=== PATIENT | male | born 1985 | race Caucasian/White ===

== ENCOUNTER → 2020-10-17 14:22 | Outpatient (BNVA) | payer MEDICARE, MEDICAID, SELFPAY | PROVIDERS: PCP Registered Nurse; Visit Provider Internal Medicine Pulmonary Disease | DX: J45.20 Mild intermittent asthma, uncomplicated (principal); G47.33 Obstructive sleep apnea (adult) (pediatric); Z79.899 Other long term (current) drug therapy | CPT/HCPCS: 99202 ==

== ENCOUNTER 2020-10-23 15:08 | Outpatient (REF) | payer MEDICARE, MEDICAID, SELFPAY ==
--- NOTE | ~2020-10-23 | XR_ITS ---
EXAMINATION: XR HIP, LEFT CLINICAL INFORMATION: Pain COMPARISON: None TECHNIQUE: Two views of the left hip. FINDINGS: Bones and soft tissues are normal. No fracture. Alignment is anatomic. Hip joint space is maintained. XR/XR hip LT min 2V IMPRESSION: Normal left hip.
--- NOTE | ~2020-10-23 | XR_ITS ---
EXAMINATION: XR LUMBOSACRAL SPINE WITH OBLIQUES CLINICAL INFORMATION: Low back pain COMPARISON: None TECHNIQUE: AP, both oblique, and lateral views of the lumbar spine. Lateral view of the lumbosacral junction. FINDINGS: There may be a transitional vertebral body segment or 6 lumbar-type vertebral bodies. For the purposes of this dictation, the transitional segment is designated inferiorly with the L1 vertebral body being the first nonrib-bearing vertebral body and the top of the iliac crest at L4-L5. Bone alignment is normal. No fracture or dislocation is seen. There may be mild disc space narrowing at the transitional segment sacral articulation. Disc spaces are otherwise normal. There is a pseudoarticulation of the transitional segment transverse processes with the sacrum and mild degenerative change bilaterally. No pars defect is seen. Paraspinal soft tissues are unremarkable. XR/XR lumbar spine 4V min IMPRESSION: Probable transitional vertebral body and degenerative change at the transitional segment sacral level.
== END 2020-10-23 15:09 | disposition home or self-care (01) ==
LOC: HO.XRAY 15:08
PROVIDERS: PCP Registered Nurse; Visit Provider Registered Nurse
DX: M54.5 Low back pain (principal); M79.605 Pain in left leg
CPT/HCPCS: 72110; 73502

== ENCOUNTER 2020-11-21 08:48 | Outpatient (REF) | payer MEDICARE, MEDICAID, SELFPAY ==
--- NOTE | 2020-11-21 17:17 | PFT_ITS ---
FLOWS: FEV1 is 99% of predicted at 3.59 L. FVC 88% of predicted at 3.89 L. FEV1 to FVC ratio of 0.92. No bronchodilator response. LUNG VOLUMES: Total lung capacity 88% of predicted at 5.06 L. Residual volume 74% of predicted at 1.04 L. Slow vital capacity 93% of predicted at 4.03 L. Expiratory reserve volume 83% of predicted at 1.09 L. Diffusion capacity is normal. IMPRESSION: No obstructive or restrictive ventilatory defect. No bronchodilator response. Essentially normal pulmonary function tests. Chava Deng MD AP/MODL / [id number]
== END 2020-11-21 08:49 | disposition home or self-care (01) ==
LOC: HO.RESP 08:48
PROVIDERS: PCP Registered Nurse; Visit Provider Internal Medicine Pulmonary Disease
DX: J45.909 Unspecified asthma, uncomplicated (principal)
CPT/HCPCS: 94060; 94727; 94729

== ENCOUNTER 2021-01-02 07:59 | Emergency (ER) | payer MEDICARE, MEDICAID, SELFPAY ==
[2021-01-02 09:39] VITALS: BP 138/72; PULSE 88; RESP 18; TEMP 36.8; O2SAT 96; BMI 40.8
--- NOTE | 2021-01-02 09:56 | ED.BACK ---
HPI - Back Pain/Injury General Chief Complaint: Back Pain/Injury Stated Complaint: back pain Time Seen by Provider: 01/02/21 09:40 Source: patient Mode of arrival: ambulatory Limitations: no limitations History of Present Illness HPI Narrative: A 35-year-old male with a past medical history of asthma here with complaints of low back pain. The patient tells me that he has had back pain for months which is quite chronic for him. However yesterday he slipped falling approximately 3 ft catching himself with the right lower extremity. He denies striking his back or any head injury or loss of consciousness. He has had increasing pain in his low back since then. Pain radiates the bilateral thighs. There is some occasional burning in his left thigh. No numbness or tingling in the lower extremities. No numbness in the groin. No bowel or bladder incontinence. No fevers or chills. The patient is ambulatory. MD elicited complaint: back pain Related Data Home Medications Medication Instructions Recorded Confirmed albuterol sulfate 90 mcg/actuation INHALATION 10/17/20 aerosol inhaler cholecalciferol (vitamin D3) 50 50 mcg PO DAILY 10/17/20 mcg (2,000 unit) capsule gabapentin 100 mg capsule mg PO 10/17/20 Previous Rx's Medication Instructions Recorded cyclobenzaprine 10 mg PO TID PRN #10 tab 01/02/21 lidocaine [Lidoderm] 1 patch TOPICAL DAILY #15 ea 01/02/21 naproxen 500 mg PO BID PRN #20 tab 01/02/21 Allergies Allergy/AdvReac Type Severity Reaction Status Date / Time No Known Allergies Allergy Verified 10/17/20 14:27 [No Known Allergies*] Review of Systems Review of Systems: Yes all other systems are reviewed and are negative Constitutional: Constitutional: Reports no additional constitutional complaints, Denies body ache(s), Denies chills, Denies fever(s), Denies headache(s) and Denies weakness Eyes: Eyes: Reports no additional eye complaints and Denies change in vision ENT: Reports system reviewed and no additional complaints, except as documented, Denies dizziness, Denies headache(s), Denies nasal congestion, Denies nasal discharge and Denies neck pain Cardiovascular: Cardiovascular: Reports no additional cardiovascular complaints, Denies chest pain, Denies leg edema and Denies dyspnea Respiratory: Respiratory: Reports no additional respiratory complaints, Denies cough and Denies dyspnea Gastrointestinal: Gastrointestinal: Reports no additional gastrointestinal complaints, Denies abdominal pain, Denies diarrhea, Denies nausea and Denies vomiting Genitourinary: Genitourinary: Denies urinary incontinence Musculoskeletal: Musculoskeletal: Reports no additional musculoskeletal complaints, Reports back pain, Denies arthralgias, Denies joint swelling, Denies neck pain, Denies numbness and Denies tingling Integumentary/Breasts: Skin/Breast: Reports system reviewed and no additional complaints, except as docu and Denies rash Neurologic: Reports system reviewed and no additional complaints, except as documented, Denies Abnormal speech present, Denies dizziness, Denies headache(s), Denies numbness, Denies tingling and Denies weakness PMFSH Past Medical History Attestation statement: The following information was validated with the patient. Source: old records reviewed and nursing notes reviewed Social History Social History Smoking Status: Never smoker Advance Directives: No Advance Directives Information Provided: No Physical Exam Vital Signs: Vital Signs: Last Vital Signs Temp 98.2 F 01/02/21 09:39 Pulse 88 01/02/21 09:39 Resp 18 01/02/21 09:39 BP 138/72 01/02/21 09:39 Pulse Ox 96 01/02/21 09:39 Body Mass Index 40.8 Const: General: cooperative, healthy appearing, comfortable and no acute distress Orientation/consciousness: patient oriented x3 Limitations: no limitations HENMT: Head: Yes normal to inspection Ears: hearing grossly normal bilaterally General nose exam: Normal external nose present Face and sinus: Yes normal facial exam Mouth: Normal oral and palatal mucosa present Throat: Yes posterior oropharynx normal Eyes: General: appearance normal, both eyes and all related structures Pupils: Equal, round and reactive pupils present Neck: Neck: Yes normal visual inspection Chest: Chest palpation & inspection: normal inspection of the chest Resp: Effort & Inspection: normal respiratory effort Auscultation: clear to auscultation bilaterally Cardio: Rate: regular rate Rhythm: regular rhythm Peripheral pulses: Peripheral pulses 2+ throughout GI: Inspection: Yes normal to inspection Palpation (GI): Soft to palpation and nontender Auscultation: normal bowel sounds Back/Spine/Pelvis: Other: Bilateral lumbar soft tissue tenderness with no midline tenderness, step-offs or deformities. Thoracic/Lumbar Spine: thoracic and lumbar spine normal to inspection Skin: General skin exam: no rashes or lesions noted Neuro: General: patient oriented x3, no focal motor deficits and normal sensation to monofilament Cranial nerves: Yes Equal, round and reactive pupils present Cognition (Neuro): normal cognition Speech: No Abnormal speech present Gait exam (Neuro): Normal gait present Motor exam (neuro): 5/5 motor strength present throughout Sensory Exam: Normal double simultaneous stimulation for sensation Deep tendon reflexes (DTR's): Right patellar reflex intensity grade: 2+ and Left patellar reflex intensity grade: 2+ Coordination: tandem gait normal Extrem: General: Yes normal to inspection Course Course Course Narrative: 35-year-old male here with acute on chronic low back pain times 24 hours after an injury. There was no fall landing on the back and there are no step-offs or midline tenderness or deformities. Normal neuro exam. Likely lumbar strain. Reviewed worrisome signs and symptoms of when to return to the emergency department (saddle anesthesia, incontinence, fever). Comfortable with discharge home. MDM - Back Pain/Injury Medical Records Attestation: I reviewed the patient's medical records. Lab Data Attestation: I reviewed the patient's lab results. Discharge Plan Discharge Clinical Impression: Strain of lumbar region Patient Disposition: Home, Self-Care Instructions: Low Back Strain (ED), Lower Back Exercises (ED), Core Strengthening Exercises (ED) Additional Instructions: Heat or ice Gentle stretching No heavy lifting or bending Follow-up with your primary care doctor. You may need an MRI of your back if you keep having persistent pain. This can be ordered by your primary care doctor. Return for fever greater than 100.4, bowel or bladder incontinence, numbness in the groin Prescriptions: New naproxen 500 mg tablet 500 mg PO BID PRN (Reason: pain) Qty: 20 RF: 0 cyclobenzaprine 10 mg tablet 10 mg PO TID PRN (Reason: muscle spasm) Qty: 10 RF: 0 lidocaine [Lidoderm] 5 % adhesive patch,medicated 1 patch topical DAILY Qty: 15 RF: 0 Referrals: Susy Hendricks, EPIT[employer] REACTOR TECHNICIAN [Primary Care Provider] - 2 days Interventions: ED Discharge Assessment Last Done: 01/02/21 10:05 Discharge Date/Time: 01/02/21 10:13
== END 2021-01-02 10:13 | disposition home or self-care (01) ==
PROVIDERS: Emergency Provider Emergency Medicine; PCP Registered Nurse
DX: S39.012A Strain of muscle, fascia and tendon of lower back, initial encounter (principal); W10.9XXA Fall (on) (from) unspecified stairs and steps, initial encounter; Y93.9 Activity, unspecified; Y92.9 Unspecified place or not applicable; Y99.9 Unspecified external cause status; G89.29 Other chronic pain; M54.5 Low back pain
CPT/HCPCS: 99283

== ENCOUNTER 2021-01-16 17:01 | Emergency (ER) | payer MEDICARE, MEDICAID, SELFPAY ==
--- NOTE | ~2021-01-16 | XR_ITS ---
EXAMINATION: XR LUMBOSACRAL SPINE CLINICAL INFORMATION: Low back pain COMPARISON: 10/23/2020 TECHNIQUE: Three views of the lumbosacral spine. FINDINGS: There is lumbarization of S1. Disc spaces and disc heights are well preserved. No bony destructive lesions seen. There are some degenerative changes present at S1-S2. No fractures, subluxations or bony destructive lesions are seen. Compared to the prior study there's been no interval change. XR/XR lumbar spine 2-3V IMPRESSION: Lumbarization of S1 with degenerative change at S1-S2. Stable when compared to prior study.
[2021-01-16 17:11] VITALS: BP 141/84; PULSE 99; RESP 18; TEMP 36.8; O2SAT 99; BMI 37.8
--- NOTE | 2021-01-16 17:59 | ED_ITS ---
HPI - Back Pain/Injury General Chief Complaint: Extremity Problem Stated Complaint: Weakness on both legs Time Seen by Provider: 01/16/21 17:32 Source: patient Mode of arrival: ambulatory Limitations: no limitations History of Present Illness HPI Narrative: 35-year-old male with past medical history of BAYLEE and asthma presents with lower back pain and bilateral lower extremity sciatica. States that he fell off of a truck maybe 2 weeks ago, he is unsure of the date, states that the pain has progressively increased and now when he bends over he feels weakness in his thighs. He does not describe any loss of sensation, loss of balance, denies incontinence of bowel and bladder, fevers, chills, nausea, vomiting, chest pain or pressure, palpitations, shortness of breath, and any other concerning symptoms. He does not describe any loss of consciousness or hitting his head when he fell off the truck. He was seen by his primary care physician who prescribed Tylenol No. 3, cyclobenzaprine, and naproxen. MD elicited complaint: back pain Pertinent past history: recent trauma Onset (ago): week(s) (2) Timing: constant Severity: moderate Pain scale (0-10): 7 Quality: aching and spasming Location: lumbar spine Radiation: left upper leg and right upper leg Exacerbating factors: movement Relieving factors: immobilization Context: fall Associated symptoms: denies other symptoms Treatments prior to arrival: cold therapy, heat therapy, NSAIDS, acetaminophen, other medications and prescription analgesics Work related injury: No Related Data Home Medications Medication Instructions Recorded Confirmed albuterol sulfate 90 mcg/actuation INHALATION 10/17/20 aerosol inhaler cholecalciferol (vitamin D3) 50 50 mcg PO DAILY 10/17/20 mcg (2,000 unit) capsule gabapentin 100 mg capsule mg PO 10/17/20 Previous Rx's Medication Instructions Recorded cyclobenzaprine 10 mg PO TID PRN #10 tab 01/02/21 lidocaine [Lidoderm] 1 patch TOPICAL DAILY #15 ea 01/02/21 naproxen 500 mg PO BID PRN #20 tab 01/02/21 Allergies Allergy/AdvReac Type Severity Reaction Status Date / Time No Known Allergies Allergy Verified 10/17/20 14:27 [No Known Allergies*] Review of Systems Review of Systems: Constitutional: No Fever, No Chills ENT/Mouth: No Ear Pain, No Hoarseness, No sore throat Eyes: No Eye Pain, No Swelling, No Redness, No Foreign Body Cardiovascular: No Chest Pain, No SOB Respiratory: No Cough, No Dyspnea Gastrointestinal: No Nausea, No Vomiting, No Diarrhea, No abdominal Pain Genitourinary: No Dysuria, No Hematuria Musculoskeletal: positive lower back pain, No Myalgias, No Joint Swelling Skin: No Skin lacerations, No rash Neuro: No Weakness, No Numbness, No Paresthesias, No Loss of Consciousness, No Dizziness, No Headache Psych: No Anxiety/Panic, No Depression Heme/Lymph: no easy bruising, no Lymphadenopathy Endocrine: No Polyuria, No Polydipsia Yes all other systems are reviewed and are negative [facility] Past Medical History Attestation statement: The following information was validated with the patient. Source: old records reviewed Social History Social History Smoking Status: Never smoker Advance Directives: No Advance Directives Information Provided: No Physical Exam Vital Signs: Vital Signs: Last Vital Signs Temp 98.2 F 01/16/21 17:11 Pulse 99 01/16/21 17:11 Resp 18 01/16/21 17:11 BP 141/84 H 01/16/21 17:11 Pulse Ox 99 01/16/21 17:11 Body Mass Index 37.8 Appearance: Alert. Oriented X3. No acute distress. Head: Normal external exam. Normocephalic. Atraumatic. No Kelley signs noted. No raccoon eyes noted Eyes: PERRLA. EOMI. Conjunctiva and sclera normal. Eyelids normal. ENT: TM's Normal. Pharynx normal. Uvula midline. Moist mucous membranes. No trismus noted. No drooling noted. No muffled voice noted. Neck: Normal inspection. Neck supple. No adenopathy. No meningeal signs. No neck mass noted. CVS: Tachycardic heart rate and rhythm. Heart sound normal. No murmurs noted. Pulses equal to all extremities. Respiratory: No respiratory distress. Painless inspiration. Breath sounds normal. No wheezes/rales/rhonchi noted. Chest nontender. No accessory muscle usage noted or decreased air movement noted. Abdomen: Soft and nontender. Bowel sounds normal in all 4 quadrants. No distention noted. No organomegaly noted. No visible injury noted. Back: No CVA tenderness. Full range of motion noted. Skin: Skin warm and dry. Normal skin color. Normal skin turgor. No rashes/lesions/lacerations noted. Extremities: No lower extremity edema. Extremities exhibit normal range of motion. Extremities nontender. Neuro: cranial nerves 2-12 intact, no focal neural deficits, strength 5/5 to all extremities, No motor deficit. No sensory deficit. Patellar Reflexes normal. Course Course Course Narrative: 35-year-old male with past medical history of obstructive sleep apnea and asthma presents with injury sustained after falling off of a truck approximately 2 weeks ago. States that he has had lower back pain, was seen by his primary care and given multiple medications all of which have been ineffective. He is now reporting symptoms consistent with sciatica and bilateral thigh weakness. Will order x-ray of lumbar spine. Lumbar x-ray is consistent with prior findings, degenerative disc disease, no indication of acute findings or fracture. MDM - Back Pain/Injury Differential Diagnosis Differential diagnosis: Likely lumbar radiculopathy, sciatica and strain of lumbar region Medical Records Attestation: I reviewed the patient's medical records. Imaging Data Lumbar spine x-ray: Attestation: I personally reviewed and interpreted this imaging study as follows: Radiologist's impression: EXAMINATION: XR LUMBOSACRAL SPINE CLINICAL INFORMATION: Low back pain COMPARISON: 10/23/2020 TECHNIQUE: Three views of the lumbosacral spine. FINDINGS: There is lumbarization of S1. Disc spaces and disc heights are well preserved. No bony destructive lesions seen. There are some degenerative changes present at S1-S2. No fractures, subluxations or bony destructive lesions are seen. Compared to the prior study there's been no interval change. XR/XR lumbar spine 2-3V IMPRESSION: Lumbarization of S1 with degenerative change at S1-S2. Stable when compared to prior study. Discharge Plan Discharge Clinical Impression: Degenerative disc disease, lumbar, Lumbar spine strain Patient Disposition: Home, Self-Care Instructions: Low Back Strain (ED), Degenerative Disc Disease (ED), Lower Back Exercises (ED), Core Strengthening Exercises (ED) Additional Instructions: Please continue take the medications that were prescribed to you by your primary care provider. I referred you to Dr. Anderson, a paint mixer machine. It is highly recommended that you seek physical therapy for your back pain. Thank you for choosing this emergency department for evaluation. Please follow-up with primary care physician as needed. Return to the emergency department for any new, concerning, or worsening symptoms. Prescriptions: No Action naproxen 500 mg tablet 500 mg PO BID PRN (Reason: pain) Qty: 20 RF: 0 cyclobenzaprine 10 mg tablet 10 mg PO TID PRN (Reason: muscle spasm) Qty: 10 RF: 0 lidocaine [Lidoderm] 5 % adhesive patch,medicated 1 patch topical DAILY Qty: 15 RF: 0 Referrals: Tonio Anderson MD [Physician] - 2 days (Degenerative disc disease) Stand Alone Forms: Work/School Release Interventions: ED Discharge Assessment Last Done: 01/16/21 19:02 Discharge Date/Time: 01/16/21 19:04
== END 2021-01-16 19:04 | disposition home or self-care (01) ==
PROVIDERS: Emergency Provider Internal Medicine
DX: S39.012A Strain of muscle, fascia and tendon of lower back, initial encounter (principal); W17.89XA Other fall from one level to another, initial encounter; M51.36 Other intervertebral disc degeneration, lumbar region; M54.42 Lumbago with sciatica, left side; M54.41 Lumbago with sciatica, right side; Y93.9 Activity, unspecified; Y92.9 Unspecified place or not applicable; Y99.9 Unspecified external cause status
CPT/HCPCS: 72100; 99283; 99284

== ENCOUNTER → 2021-02-18 11:02 | Outpatient (REF) | payer MEDICARE, MEDICAID, SELFPAY | LOC: HO.SL 11:02 | PROVIDERS: PCP Registered Nurse; Visit Provider Internal Medicine Pulmonary Disease | DX: G47.33 Obstructive sleep apnea (adult) (pediatric) (principal) | CPT/HCPCS: 95806 ==

== ENCOUNTER 2021-07-28 08:45 | Emergency (ER) | payer MEDICARE, MEDICAID, SELFPAY ==
[2021-07-28 08:51] VITALS: BP 139/95; PULSE 110; RESP 16; TEMP 36.6; O2SAT 96; BMI 42.7
[2021-07-28] MEDS: Ketorolac Tromethamine 15 MG/ML VIAL 30 MG IM (09:37)
--- NOTE | 2021-07-28 09:52 | ED.BACK ---
HPI - Back Pain/Injury General Chief Complaint: Back Pain/Injury Stated Complaint: low back pain, blood in stool Time Seen by Provider: 07/28/21 09:13 Source: patient Mode of arrival: ambulatory History of Present Illness HPI Narrative: 36-year-old male with a past medical history of chronic back pain presenting to the ED complaining of acute on chronic back to pain x1 week. Denies known injury/trauma or falls. Reports symptoms unchanged from prior flares however worse. Reports intermittent radiation down left lower extremity with intermittent numbness. Denies weakness, urinary incontinence/retention, fever, chills, hematuria, dysuria Currently taking [place] outpatient from PCP without relief. Admits head MRI in March. States went to physical therapy in the past however made his symptoms worse MD elicited complaint: back pain Related Data Home Medications Medication Instructions Recorded Confirmed albuterol sulfate 90 mcg/actuation INHALATION 10/17/20 aerosol inhaler cholecalciferol (vitamin D3) 50 50 mcg PO DAILY 10/17/20 mcg (2,000 unit) capsule gabapentin 100 mg capsule mg PO 10/17/20 Previous Rx's Medication Instructions Recorded cyclobenzaprine 10 mg tablet 10 mg PO TID PRN #10 tab 01/02/21 lidocaine 5 % topical patch 1 patch TOPICAL DAILY #15 ea 01/02/21 (Lidoderm) naproxen 500 mg tablet 500 mg PO BID PRN #20 tab 01/02/21 acetaminophen 500 mg tablet 500 mg PO Q6H PRN #20 tab 07/28/21 (Tylenol Extra Strength) cyclobenzaprine 5 mg tablet 5 mg PO Q8H PRN 5 Days #14 tab 07/28/21 lidocaine 5 % topical patch 1 patch TOPICAL DAILY PRN #30 ea 07/28/21 (Lidoderm) MDD remove after 12 hours naproxen 500 mg tablet 500 mg PO BID PRN 10 Days #20 tab 07/28/21 prednisone 20 mg tablet 40 mg PO DAILY 5 Days #10 tab 07/28/21 Allergies Allergy/AdvReac Type Severity Reaction Status Date / Time No Known Allergies Allergy Verified 10/17/20 14:27 [No Known Allergies*] Review of Systems Review of Systems: Constitutional: No Fever, No Chills, No Fatigue, No Malaise ENT/Mouth: No Ear Pain, No Nasal Congestion, No Sinus Pain, No sore throat Eyes: No Eye Pain, No Swelling, No Redness Cardiovascular: No Chest Pain, No SOB Respiratory: No Cough, No Sputum Gastrointestinal: No Nausea, No Vomiting, No Abdominal pain Genitourinary: No Dysuria, No Urinary Frequency, No Hematuria,No Urinary Incontinence/retention, No Flank Pain Musculoskeletal: + joint pain, No Myalgias, No Joint Swelling Skin: No Skin Lesions, No rash Neuro: No Weakness, + Numbness, + Paresthesias Yes all other systems are reviewed and are negative Neurologic: Denies Sensory deficit (Neuro) [facility] Past Medical History Attestation statement: The following information was validated with the patient. Medical History (Updated 07/28/21 @ 09:56 by LUIS ANTONIO Crook) Chronic low back pain Social History Social History Advance Directives: No Physical Exam Vital Signs: Vital Signs: Last Vital Signs Temp 97.8 F 07/28/21 08:51 Pulse 110 H 07/28/21 08:51 Resp 16 07/28/21 08:51 BP 139/95 H 07/28/21 08:51 Pulse Ox 96 07/28/21 08:51 Body Mass Index 42.7 Const: General: cooperative, healthy appearing and no acute distress Orientation/consciousness: patient oriented x3 Limitations: no limitations HENMT: Head: Yes normal to inspection Ears: hearing grossly normal bilaterally General nose exam: Normal external nose present Face and sinus: Yes normal facial exam Eyes: General: appearance normal, both eyes and all related structures EOM: EOMs intact bilaterally Neck: Neck: Yes normal visual inspection and Yes no meningeal signs Resp: Effort & Inspection: normal respiratory effort and no respiratory distress Cardio: Rate: regular rate Heart sounds: S1 normal heart sound present and S2 normal heart sound present GI: Inspection: Yes normal to inspection Palpation (GI): Soft to palpation, nontender, no guarding and not rigid : General: Yes no CVA tenderness Back/Spine/Pelvis: Back: no CVA tenderness Skin: Rashes: no rashes Wounds: no wounds Neuro: Other: No midline spinous tenderness throughout, no saddle anesthesia. + left-sided lumbar MSK tenderness palpation. No ecchymosis. Sensation intact to light touch. Ambulating with steady gait General: patient oriented x3, gait normal, tone normal, moves all extremities and no meningeal signs Gait exam (Neuro): Normal gait present Sensory Exam: No Sensory deficit (Neuro) Extrem: General: Yes normal to inspection MDM - Back Pain/Injury MDM Narrative Medical decision making narrative: 36-year-old male with a past medical history of chronic back pain presenting to the ED complaining of acute on chronic back to pain x1 week. On exam mildly tachycardic, NAD/nontoxic, no midline spinous tenderness throughout, no red flag symptoms. Physical exam as above. Likely acute on chronic sciatica/degenerative back pain. Low concern for cauda equina, cord compression or renal stone/pyelo Discussed with patient he needs to follow-up with PCP/recommended physical therapy Medical Records Attestation: I reviewed the patient's medical records. Lab Data Attestation: I reviewed the patient's lab results. Discharge Plan Discharge Clinical Impression: Lumbar radiculopathy Patient Disposition: Home, Self-Care Instructions: Back Pain (ED) Additional Instructions: Your pain is likely musculoskeletal Flexeril is a muscle relaxer, take at night as it makes you drowsy, do not drive, drink alcohol, or operate machinery while taking it Naproxen as an anti-inflammatory / pain medication, take with food Prednisone as a steroid which help with inflammation Lidoderm patches are numbing patches, apply to painful area In addition take Tylenol at home If symptoms persist or worsen, pain becomes unbearable, you developed urinary retention or incontinence, or weakness return to the ED Please follow-up with her primary care doctor you likely need an MRI Es probable que hirsch dolor sea musculoesquel?ute Flexeril es un relajante muscular, t?catalan por la noche ya que le produce somnolencia, no conduzca, no johnie alcohol ni utilice maquinaria mientras lo maisha. Naproxeno fredi medicamento antiinflamatorio / analg?sico, itz con alimentos. Prednisona fredi esteroide que ayuda con la inflamaci?n. Los parches de Lidoderm son parches que adormecen, se aplican al ?blanca dolorida Adem?s, tome Tylenol en casa. Si los s?ntomas persisten o empeoran, el dolor se vuelve insoportable, desarroll? retenci?n urinaria o incontinencia o debilidad, regrese al servicio de urgencias Jennifer un seguimiento con hirsch m?dico de atenci?n primaria, es probable que necesite tosha resonancia magn?essence Prescriptions: New cyclobenzaprine 5 mg tablet 5 mg PO Q8H PRN (Reason: pain (scale score 7-10)) 5 Days Qty: 14 RF: 0 lidocaine [Lidoderm] 5 % adhesive patch,medicated 1 patch topical DAILY MDD remove after 12 hours PRN (Reason: pain) Qty: 30 RF: 0 acetaminophen [Tylenol Extra Strength] 500 mg tablet 500 mg PO Q6H PRN (Reason: pain or fever) Qty: 20 RF: 0 prednisone 20 mg tablet 40 mg PO DAILY 5 Days Qty: 10 RF: 0 naproxen 500 mg tablet 500 mg PO BID PRN (Reason: pain) 10 Days Qty: 20 RF: 0 No Action naproxen 500 mg tablet 500 mg PO BID PRN (Reason: pain) Qty: 20 RF: 0 cyclobenzaprine 10 mg tablet 10 mg PO TID PRN (Reason: muscle spasm) Qty: 10 RF: 0 lidocaine [Lidoderm] 5 % adhesive patch,medicated 1 patch topical DAILY Qty: 15 RF: 0 Referrals: Physician,Unknown J [Primary Care Provider] - 2 days
== END 2021-07-28 10:22 | disposition home or self-care (01) ==
PROVIDERS: Emergency Provider Emergency Medicine
DX: M54.16 Radiculopathy, lumbar region (principal)
CPT/HCPCS: 96372; 99284; J1885

== ENCOUNTER 2022-12-10 03:26 | Emergency (ER) | payer MEDICARE, MEDICAID, SELFPAY ==
--- NOTE | ~2022-12-10 | XR_ITS ---
EXAMINATION: XR CHEST CLINICAL INFORMATION: Productive cough COMPARISON: 10/12/2019 TECHNIQUE: 2 views of the chest were obtained. FINDINGS: The lungs are well expanded. There is no focal consolidation, edema, or effusion. No pneumothorax. The cardiomediastinal silhouette is within normal limits. No acute osseous abnormality. XR/XR chest 2V IMPRESSION: Clear lungs.
[2022-12-10 03:32] VITALS: BP 132/87; PULSE 132; RESP 24; TEMP 36.5; O2SAT 99; BMI 44.9
[2022-12-10 03:50] LABS: MANUAL DIFF FLAG NO
[2022-12-10 03:51] LABS: Basophils Absolute Auto 0.1 X10*3/uL (0.0-0.2); Basophils Percent Auto 0.5 % (0-2); Eosinophils Absolute Auto 0.3 X10*3/uL (0.0-0.4); Eosinophils Percent Auto 2.2 % (0-4); Hematocrit 43.5 % (42.0-52.0); Hemoglobin 14.4 g/dl (14.0-18.0); Imm Gran Abs Auto 0.08 X10*3/uL (0.00-0.03); Imm Gran Pct Auto 0.5 % (0.0-0.4); Lymphocytes Absolute Auto 4.8 X10*3/uL (1.2-4.9); Mean Corpuscular HGB Conc 33.1 g/dl (31.0-36.0); Mean Corpuscular Hemoglobin 25.8 pg (27.0-33.0); Mean Platelet Volume 9.2 fL (9.4-12.4); Monocytes Absolute Auto 1.3 X10*3/uL (0.1-1.2); Monocytes Percent Auto 8.8 % (2-11); Platelet Count 288 X10*3/uL (160-400); Red Blood Count 5.58 X10*6/uL (4.60-5.80); Red Cell Distribution Width 13.9 % (11.0-16.0); White Blood Count 14.6 X10*3/uL (4.8-10.8)
[2022-12-10 04:08] LABS: COVID-19 Test Negative (Negative); IDNOW Serial# 08D9AD1C; IDNOW Serial# 9DB6401D; Influenza A Negative (Negative); Influenza B2 Negative (Negative)
[2022-12-10 04:13] LABS: Anion Gap 18 (12-20); Blood Urea Nitrogen 9 mg/dL (9-16); Calcium 8.8 mg/dL (8.4-10.2); Carbon Dioxide 23 mmol/L (22-29); Chloride 107 mmol/L (96-108); Estimated Glomerular Filt Rate > 60; Glucose Random 137 mg/dL (60-115); Potassium 3.7 mmol/L (3.3-5.1); Sodium 144 mmol/L (135-145)
[2022-12-10 05:30] VITALS: BP 147/84; PULSE 111; RESP 16; TEMP 36.8; O2SAT 97
--- NOTE | 2022-12-10 05:57 | PC.NURSE ---
this rn assumed care of pt @ 0530. pt in ed 1 with at bedside. pt awaiting to be seen by ed provider
--- NOTE | 2022-12-10 06:13 | PC.NURSE ---
dr daniel aware of pt no new orders
--- NOTE | 2022-12-10 06:42 | ED_ITS ---
HPI - General Adult General Chief complaint: General Medical Stated complaint: upper resp, SoB Time Seen by Provider: 12/10/22 06:41 Source: patient Mode of arrival: ambulatory Limitations: no limitations History of Present Illness HPI narrative: 37-year-old male with history of asthma presents with cough, mucus production. Symptoms started approximately 6 days ago. Patient has productive cough that is brown mucus. Symptoms are getting progressively worse. There is no clear relieving or exacerbating features. He has tried DayQuil and Vicks vapor rub without improvement. He has had some slightly increased shortness of breath. Has not used any of his asthma medications. He does describe a very mild pl euritic chest pain, worse with coughing. Pain is generalized. Does not radiate. He has had no fevers or chills. He denies any sick contacts. He has noticed a slightly runny nose. He denies any nausea, vomiting, diarrhea, change in appetite. Related Data Home Medications Medication Instructions Recorded Confirmed albuterol sulfate 90 mcg/actuation inhalation 10/17/20 aerosol inhaler cholecalciferol (vitamin D3) 50 50 mcg PO DAILY 10/17/20 mcg (2,000 unit) capsule gabapentin 100 mg capsule mg PO 10/17/20 Previous Rx's Medication Instructions Recorded cyclobenzaprine 10 mg tablet 10 mg PO TID PRN muscle spasm #10 01/02/21 tabs lidocaine 5 % topical patch 1 patch topical DAILY #15 ea 01/02/21 (Lidoderm) naproxen 500 mg tablet 500 mg PO BID PRN pain #20 tabs 01/02/21 acetaminophen 500 mg tablet 500 mg PO Q6H PRN pain or fever 07/28/21 (Tylenol Extra Strength) #20 tabs cyclobenzaprine 5 mg tablet 5 mg PO Q8H PRN pain (scale score 07/28/21 7-10) 5 days #14 tabs lidocaine 5 % topical patch 1 patch topical DAILY PRN pain #30 07/28/21 (Lidoderm) ea naproxen 500 mg tablet 500 mg PO BID PRN pain 10 days #20 07/28/21 tabs prednisone 20 mg tablet 40 mg PO DAILY 5 days #10 tabs 07/28/21 azithromycin 250 mg tablet 250 mg PO DAILY #4 tabs 12/10/22 prednisone 20 mg tablet 20 mg PO DAILY #4 tabs 12/10/22 Allergies Allergy/AdvReac Type Severity Reaction Status Date / Time No Known Allergies Allergy Verified 12/10/22 03:35 [No Known Allergies*] [facility] Past Medical History Medical History Chronic low back pain Social History Social History Smoked in Last 30 Days: No Use of substances other than those prescribed or required for medical reasons: No Advance Directives: No Advance Directives Information Provided: No Physical Exam ED Vital Signs: Vital Signs - 24 hr 12/10/22 03:32 12/10/22 05:30 Temperature 97.7 F 98.3 F Pulse Rate 132 H 111 H Respiratory Rate 24 H 16 Blood Pressure 132/87 147/84 H Pulse Oximetry 99 97 Oxygen Delivery Method Room Air Room Air BMI result Body Mass Index 44.9 GEN: Well developed, no acute distress, alert, oriented HEENT: Normocephalic, atraumatic, normal external ears, nose appears normal, no oropharyngeal edema or exudates Eyes: Normal to appearance Neck: Supple, no lymphadenopathy Respiratory: Talks in complete sentences, no respiratory distress, clear to auscultation bilaterally Cardiovascular: Regular rate and rhythm, no murmurs rubs or gallops Abdomen: Soft, nontender, nondistended, no guarding, no rebound Back: No CVA tenderness Extremities: No clubbing cyanosis or edema Neurologic: No focal neurologic deficits, cranial nerves 2-12 intact, strength is 5/5 bilaterally, gait normal Skin: No rash Course Course Course Narrative: 37-year-old male presents cough, shortness of breath, mucus production. Examination is benign at this point time. Suspect bacterial bronchitis. He was negative for COVID, flu. He does have an elevated white blood cell count which could be a leukemoid reaction secondary to computer infectious process. I will recommend follow-up blood testing. Will start patient on steroids and oral antibiotics. Medical Decision Making Medical Decision Making MDM Narrative: Patient presents with an acute cough most likely consistent with bacterial bronchitis. The differential diagnosis includes influenza, COVID, reactive airway disease, parainfluenza virus, less likely CHF. This is an acute diagnosis and is unlikely to be consistent with chronic causes such as GERD, chronic asthma, postnasal discharge, CHF. Patient will have a chest x-ray, laboratory analysis to rule out multitude of diagnoses. Differential Diagnosis Differential Diagnoses: The differential diagnosis associated with the presentation includes (Bronchitis, influenza, parainfluenza, upper respiratory infection, CHF, asthma exacerbation, COPD) Admission/Observation Consideration of admission/observation: Escalation of care including a dmission/observation considered Lab Data MDM Lab Attestation statement: I reviewed the patient's lab results. 12/10/22 03:44 12/10/22 03:44 Labs: Lab Results 12/10/22 12/10/22 12/10/22 Range/Units 03:44 03:44 03:44 WBC 14.6 H (4.8-10.8) X10*3/uL RBC 5.58 (4.60-5.80) X10*6/uL Hgb 14.4 (14.0-18.0) g/dl Hct 43.5 (42.0-52.0) % MCV 78.0 L (80.0-98.0) fL MCH 25.8 L (27.0-33.0) pg MCHC 33.1 (31.0-36.0) g/dl RDW 13.9 (11.0-16.0) % Plt Count 288 (160-400) X10*3/uL MPV 9.2 L (9.4-12.4) fL Immature Gran % (Auto) 0.5 H (0.0-0.4) % Neut % (Auto) 55.0 (45-73) % Lymph % (Auto) 33.0 (20-40) % [place] % (Auto) 8.8 (2-11) % Eos % (Auto) 2.2 (0-4) % Baso % (Auto) 0.5 (0-2) % Lymph # (Auto) 4.8 (1.2-4.9) X10*3/uL [place] # (Auto) 1.3 H (0.1-1.2) X10*3/uL Eos # (Auto) 0.3 (0.0-0.4) X10*3/uL Baso # (Auto) 0.1 (0.0-0.2) X10*3/uL Abs Immat Gran (auto) 0.08 H (0.00-0.03) X10*3/uL Absolute Neuts (auto) 8.0 (2.0-8.3) x10*3/uL Absolute Nucleated RBC 0.000 (0.0-0.012) X10*3/uL Nucleated RBC % (auto) 0.0 (0.0-0.2) /100WBC Sodium (135-145) mmol/L Potassium (3.3-5.1) mmol/L Chloride (96-108) mmol/L Carbon Dioxide (22-29) mmol/L Anion Gap (12-20) BUN (9-16) mg/dL Creatinine (0.5-1.4) mg/dL Estim Creat Clear Calc Estimated GFR Random Glucose (60-115) mg/dL Calcium (8.4-10.2) mg/dL COVID-19 (VON) Negative (Negative) COVID-19 Clin Com See Note Influenza Type A (VENECIA) Negative (Negative) Influenza Type B (VENECIA) Negative (Negative) Influenza A & B Note See Note 12/10/22 Range/Units 03:44 WBC (4.8-10.8) X10*3/uL RBC (4.60-5.80) X10*6/uL Hgb (14.0-18.0) g/dl Hct (42.0-52.0) % MCV (80.0-98.0) fL MCH (27.0-33.0) pg MCHC (31.0-36.0) g/dl RDW (11.0-16.0) % Plt Count (160-400) X10*3/uL MPV (9.4-12.4) fL Immature Gran % (Auto) (0.0-0.4) % Neut % (Auto) (45-73) % Lymph % (Auto) (20-40) % [place] % (Auto) (2-11) % Eos % (Auto) (0-4) % Baso % (Auto) (0-2) % Lymph # (Auto) (1.2-4.9) X10*3/uL [place] # (Auto) (0.1-1.2) X10*3/uL Eos # (Auto) (0.0-0.4) X10*3/uL Baso # (Auto) (0.0-0.2) X10*3/uL Abs Immat Gran (auto) (0.00-0.03) X10*3/uL Absolute Neuts (auto) (2.0-8.3) x10*3/uL Absolute Nucleated RBC (0.0-0.012) X10*3/uL Nucleated RBC % (auto) (0.0-0.2) /100WBC Sodium 144 (135-145) mmol/L Potassium 3.7 (3.3-5.1) mmol/L Chloride 107 (96-108) mmol/L Carbon Dioxide 23 (22-29) mmol/L Anion Gap 18 (12-20) BUN 9 (9-16) mg/dL Creatinine 0.99 (0.5-1.4) mg/dL Estim Creat Clear Calc 120.0 Estimated GFR > 60 Random Glucose 137 H (60-115) mg/dL Calcium 8.8 (8.4-10.2) mg/dL COVID-19 (VON) (Negative) COVID-19 Clin Com Influenza Type A (VENECIA) (Negative) Influenza Type B (VENECIA) (Negative) Influenza A & B Note Independent Interpretation I performed an independent interpretation of an: Plain X-Ray (CXR: NAD) Radiology Impression Discussion of test interpretation with radiology: I have reviewed the radiologist's reading. ( XR/XR chest 2V IMPRESSION: Clear lungs. Dictated By:Sae Colon MDSigned By:<Electronically signed by Sae Colon MD in [place]>12/10/22 0540 DD/ 0529TD/TT: Machine Operator Assistant: DYANA) Prescription Management I considered prescription management with: Antibiotic Chronic Conditions Patient?s care impacted by: Other (Asthma) Discharge Plan Discharge Clinical Impression: Acute bronchitis Patient Disposition: Home, Self-Care Instructions: Acute Bronchitis (ED) Additional Instructions: You were seen today for cough. You have been diagnosed with acute bronchitis. He will start oral antibiotics this morning. I have sent a prescription to your pharmacy for antibiotics and steroids. Your next dose should be tomorrow morning. Other findings under laboratory testing included an elevated white bl ood cell count which is probably consistent with an infection however, this should be rechecked in 3-4 weeks. Additionally, your noted to have an elevated blood sugar. This could be pre diabetes, diabetes or also reaction to an acute infection. This can be followed with routine laboratory analysis by her primary care provider as well Prescriptions: New prednisone 20 mg tablet 20 mg PO DAILY Qty: 4 0RF azithromycin 250 mg tablet 250 mg PO DAILY Qty: 4 0RF No Action naproxen 500 mg tablet 500 mg PO BID PRN (Reason: pain) Qty: 20 0RF cyclobenzaprine 10 mg tablet 10 mg PO TID PRN (Reason: muscle spasm) Qty: 10 0RF lidocaine [Lidoderm] 5 % adhesive patch,medicated 1 patch topical DAILY Qty: 15 0RF Rx Instructions: leave on most painful area for up to 12 hrs cyclobenzaprine 5 mg tablet 5 mg PO Q8H PRN (Reason: pain (scale score 7-10)) 5 Days Qty: 14 0RF lidocaine [Lidoderm] 5 % adhesive patch,medicated 1 patch topical DAILY MDD remove after 12 hours PRN (Reason: pain) Qty: 30 0RF Rx Instructions: leave on most painful area for up to 12 hrs acetaminophen [Tylenol Extra Strength] 500 mg tablet 500 mg PO Q6H PRN (Reason: pain or fever) Qty: 20 0RF prednisone 20 mg tablet 40 mg PO DAILY 5 Days Qty: 10 0RF naproxen 500 mg tablet 500 mg PO BID PRN (Reason: pain) 10 Days Qty: 20 0RF Referrals: Physician,Unknown J [Primary Care Provider] - 1 week
[2022-12-10] MEDS: Azithromycin 500 MG TABLET PO (07:29)
[2022-12-10] MEDS: predniSONE 20 MG TABLET 40 MG PO (07:29)
== END 2022-12-10 07:33 | disposition home or self-care (01) ==
PROVIDERS: Emergency Provider Emergency Medicine
DX: J20.9 Acute bronchitis, unspecified (principal); R06.02 Shortness of breath; R05.9 Cough, unspecified; Z20.822 Contact with and (suspected) exposure to COVID-19; Z20.828 Contact with and (suspected) exposure to other viral communicable diseases; Z79.899 Other long term (current) drug therapy
CPT/HCPCS: 36415; 71046; 80048; 85025; 87502; 87635; 99283; 99284

== ENCOUNTER 2023-11-22 10:46 | Emergency (ER) | payer MEDICARE, SELFPAY ==
--- NOTE | ~2023-11-22 | CT_ITS ---
EXAMINATION: CT HEAD WITHOUT CONTRAST CLINICAL INFORMATION: Left-sided facial droop. COMPARISON: 03/14/2018 TECHNIQUE: Contiguous axial imaging was performed from the skull base to vertex without intravenous administration of contrast. This CT examination was performed using dose optimization techniques as appropriate, variously including the following: *Automated exposure control *Adjustment of mA and/or kV according to patient size (this includes techniques or standardized protocols for targeted exams where dose is matched to indication/reason for exam; i.e. extremities or head) *Use of iterative reconstruction technique DLP: 804 mGy-cm FINDINGS: The brain parenchyma has normal attenuation. The waterman-white matter differentiation is well preserved. No evidence of an acute major vascular territory infarction. No intracranial hemorrhage, extra-axial fluid collection, focal mass effect or midline shift. The ventricles have normal size and configuration; no hydrocephalus. The brainstem and cerebellum have a normal appearance. The cerebellar tonsils are in normal position. The calvarium is intact. Mild mucosal thickening at inferior aspect of left maxillary sinus. Otherwise, the visualized paranasal sinuses are well aerated. A trace left mastoid effusion is present. The orbits and globes are unremarkable. The temporomandibular joints are normal. CT/CT head/brain wo IV con IMPRESSION: No evidence of intracranial hemorrhage, mass or infarction. No acute intracranial pathology.
[2023-11-22 10:58] VITALS: BP 142/92; PULSE 123; RESP 19; TEMP 36.6; O2SAT 94; BMI 44.4
--- NOTE | 2023-11-22 11:05 | ED.GENADULT ---
HPI - General Adult General Chief complaint: General Medical Stated complaint: facial numbness pain l sided head pain Time Seen by Provider: 11/22/23 11:04 Source: patient and RN notes reviewed Mode of arrival: ambulatory Limitations: no limitations History of Present Illness HPI narrative: This is a 38-year-old male presenting to the emergency department with complaints of left-sided facial droop upon awakening this morning. He admits to having slight headache. Denies any arm or leg weakness. Denies any recent head strike. He is not on blood thinners. He reports that last week he had a URI, feeling much better. Denies hx of similar symptoms in the past. No recent tick bites. No other complaints or concerns. MD complaint: Facial droop Onset (ago): hour(s) Location: face Radiation: non-radiation Relieving factors: none Exacerbating factors: none Associated symptoms: denies other symptoms Treatments prior to arrival: none Related Data Home Medications Medication Instructions Recorded Confirmed albuterol sulfate 90 mcg/actuation inhalation 10/17/20 11/24/23 aerosol inhaler cholecalciferol (vitamin D3) 50 50 mcg PO DAILY 10/17/20 11/24/23 mcg (2,000 unit) capsule gabapentin 100 mg capsule mg PO 10/17/20 11/24/23 Previous Rx's Medication Instructions Recorded cyclobenzaprine 10 mg tablet 10 mg PO TID PRN muscle spasm #10 01/02/21 tabs lidocaine 5 % topical patch 1 patch topical DAILY #15 ea 01/02/21 (Lidoderm) naproxen 500 mg tablet 500 mg PO BID PRN pain #20 tabs 01/02/21 acetaminophen 500 mg tablet 500 mg PO Q6H PRN pain or fever 07/28/21 (Tylenol Extra Strength) #20 tabs cyclobenzaprine 5 mg tablet 5 mg PO Q8H PRN pain (scale score 07/28/21 7-10) 5 days #14 tabs lidocaine 5 % topical patch 1 patch topical DAILY PRN pain #30 07/28/21 (Lidoderm) ea naproxen 500 mg tablet 500 mg PO BID PRN pain 10 days #20 07/28/21 tabs prednisone 20 mg tablet 40 mg (2 x 20 mg) PO DAILY 5 days 07/28/21 #10 tabs azithromycin 250 mg tablet 250 mg PO DAILY #4 tabs 12/10/22 prednisone 20 mg tablet 20 mg PO DAILY #4 tabs 12/10/22 amoxicillin 875 mg-potassium 1 tab PO BID 7 days #14 tabs 11/22/23 clavulanate 125 mg tablet prednisone 10 mg tablet 60 mg (6 x 10 mg) PO DAILY 7 days 11/22/23 #42 tabs valacyclovir 1 gram tablet 1,000 mg PO TID 7 days #21 tabs 11/22/23 Allergies Allergy/AdvReac Type Severity Reaction Status Date / Time No Known Allergies Allergy Verified 11/24/23 11:16 [No Known Allergies*] Review of Systems Review of Systems: Yes all other systems are reviewed and are negative Constitutional: Constitutional: Reports as per [facility] Past Medical History Medical History (Updated 11/24/23 @ 11:46 by Robel Ngo MD) Rectal bleeding Chronic low back pain Physical Exam ED Vital Signs: Vital Signs - 24 hr 11/22/23 10:58 11/22/23 13:16 Temperature 98 F 98.3 F Pulse Rate 123 H 110 H Respiratory Rate 19 16 Blood Pressure 142/92 H 142/87 H Pulse Oximetry 94 95 Oxygen Delivery Method Room Air BMI result Body Mass Index 44.4 Const General: cooperative, comfortable and no acute distress Orientation/consciousness: patient oriented x3 Limitations: no limitations HENMT Head: Yes normal to inspection, Yes normocephalic and Yes atraumatic Ears: hearing grossly normal bilaterally General nose exam: Normal external nose present Face and sinus: Yes normal facial exam Mouth: Normal oral and palatal mucosa present, oropharynx normal and moist mucous membranes Throat: Yes posterior oropharynx normal Eyes General: appearance normal, both eyes and all related structures Eyelids: Yes eyelids normal Conjunctivae: conjunctivae normal Sclerae: sclerae normal Pupils: Equal, round and reactive pupils present EOM: EOMs intact bilaterally Neck Neck: Yes normal visual inspection, Yes full ROM and Yes no lymphadenopathy Lymphatic: no lymphadenopathy noted Chest Chest palpation & inspection: normal inspection of the chest Resp Effort & Inspection: normal respiratory effort and able to speak in complete sentences Auscultation: clear to auscultation bilaterally, no crackles, no rales, no rhonchi and no wheezes Cardio Rate: regular rate Rhythm: regular rhythm Heart sounds: S1 normal heart sound present and S2 normal heart sound present GI Inspection: Yes normal to inspection Skin General skin exam: no rashes or lesions noted Trauma: no lacerations or abrasions Wounds: no wounds Neuro Other: Left-sided facial droop noted, asymmetric smile, unable to raise left eyebrow. Tongue is midline. Able to puff cheeks, facial strength decreased on the left, unable to open left eye fully. General: patient oriented x3 Cranial nerves: Yes Equal, round and reactive pupils present, Yes Nystagmus not present, Yes Midline tongue present and Yes Symmetric palate elevation present Cognition (Neuro): normal cognition Gait exam (Neuro): Normal gait present Motor exam (neuro): 5/5 motor strength present throughout and Pronator motor function not present Coordination: [id number]-[id number]-wzag test normal, [id number] test normal, tandem gait normal, Normal rapid alternating movements of the distal upper extremity present (Neuro) and Normal rapid alternating movements of the distal lower extremity present (Neuro) Romberg Test: Negative Extrem General: Yes normal to inspection Right upper extremity: normal to inspection Left upper extremity: normal to inspection Right lower extremity: normal to inspection Left lower extremity: normal to inspection NIH Stroke Scale Internal: Other Time: 12:00 Level of Consciousness: Alert Level of Consciousness Questions: Answers both questions correctly Level of Consciousness Commands: Performs both tasks correctly Best Gaze: Normal Visual: No visual loss Facial Palsy: Partial paralysis Motor Arm (Right): No drift Motor Arm (Left): No drift Motor Leg (Right): No drift Motor Leg (Left): No drift Limb Ataxia: Absent Sensory: Normal Best Language: No aphasia Dysarthia: Normal Extinction and Inattention: No abnormality Score: 2 Course Reevaluation(s) Reevaluation #1: CT head unremarkable, patient has no leukocytosis, stable H&H, he does have elevated transaminases, which he has had in the past, slight elevation in CRP, patient tested negative for COVID and flu. He does have mucosal thickening on the left, will treat with antivirals, antibiotics as well as prednisone. Advised follow-up with his PCP. He understands and agrees with plan. Given Tylenol prior to his departure. Patient stable for discharge. Time: 13:04 Medications Administered Discontinued Medications Generic Name Dose Route Start Last Admin Trade Name Manuelq PRN Reason Stop Dose Admin Acetaminophen 975 mg 11/22/23 13:20 11/22/23 13:57 Acetaminophen 325 Mg Tablet PO 11/22/23 13:21 975 mg ONCE ONE Administration Medical Decision Making Medical Decision Making [facility] Narrative: This is a [id number], with a hx of asthma, presenting to the ER with complaints of left sided facial droop since this morning. Reports that the felt side of his face was drooping upon awaking this morning. On examination, pt with left sided droop, asymmetric smile, unable to raise left eyebrow. 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 Strength in upper and lower extremities strong and equal. Negative pronator drift, finger to nose, heel to [place] all intact. Other differentials including CVA, TIA, herpes, lyme. CT head and neck ordered which was unremarkable. Drawn for tick borne illnesses. Discussed findings with patient, he understands and agrees with plan. Given return precautions. Stable for d/c. Differential Diagnosis Differential Diagnoses: The differential diagnosis associated with the presentation includes see above Admission/Observation Consideration of admission/observation: Escalation of care including admission/observation considered Escalation of care including admission/observation considered however given workup today not warranted at this time. Lab Data [facility] Lab Attestation statement: I reviewed the patient's lab results. No leukocytosis, stable H&H 11/22/23 11:31 11/22/23 11:31 Labs: Lab Results 11/22/23 Range/Units 11:31 WBC 8.8 (4.8-10.8) X10*3/uL RBC 5.86 H (4.60-5.80) X10*6/uL Hgb 14.9 (14.0-18.0) g/dl Hct 44.5 (42.0-52.0) % MCV 75.9 L (80.0-98.0) fL MCH 25.4 L (27.0-33.0) pg MCHC 33.5 (31.0-36.0) g/dl RDW 14.1 (11.0-16.0) % Plt Count 269 (160-400) X10*3/uL MPV 9.2 L (9.4-12.4) fL Immature Gran % (Auto) 0.5 H (0.0-0.4) % Neut % (Auto) 64.6 (45-73) % Lymph % (Auto) 20.5 (20-40) % Isabella % (Auto) 10.5 (2-11) % Eos % (Auto) 3.2 (0-4) % Baso % (Auto) 0.7 (0-2) % Lymph # (Auto) 1.8 (1.2-4.9) X10*3/uL Isabella # (Auto) 0.9 (0.1-1.2) X10*3/uL Eos # (Auto) 0.3 (0.0-0.4) X10*3/uL Baso # (Auto) 0.1 (0.0-0.2) X10*3/uL Abs Immat Gran (auto) 0.04 H (0.00-0.03) X10*3/uL Absolute Neuts (auto) 5.7 (2.0-8.3) x10*3/uL Absolute Nucleated RBC 0.000 (0.0-0.012) X10*3/uL Nucleated RBC % (auto) 0.0 (0.0-0.2) /100WBC ESR 14 (0-15) MM/HR Sodium 140 (135-145) mmol/L Potassium 3.6 (3.3-5.1) mmol/L Chloride 106 (96-108) mmol/L Carbon Dioxide 24 (22-29) mmol/L Anion Gap 14 (12-20) BUN 7 L (9-16) mg/dL Creatinine 1.03 (0.5-1.4) mg/dL Estim Creat Clear Calc 117.3 Estimated GFR > 60 Random Glucose 134 H (60-115) mg/dL Calcium 9.3 (8.4-10.2) mg/dL Total Bilirubin 0.6 (0.0-1.0) mg/dL AST 57 H (5-37) U/L ALT 70 H (0-40) U/L Alkaline Phosphatase 86 (39-117) U/L C-Reactive Protein 0.71 H (< or = 0.50) mg/dL Total Protein 7.9 (6.5-8.0) g/dL Albumin 4.1 (3.5-5.0) g/dL A. phagocytophilum IgG <1:64 (<1:64) A. phagocytophilum IgM <1:20 (<1:20) A.phagocytophilum Intrp A. phagocytophilum Cmmt See Below Babesia microti IgG Ab <1:64 (<1:64) titer Babesia microti IgM Ab <1:20 (<1:20) titer Babesia Interpretation SEE NOTE Lyme Screen IgG & IgM <0.90 index Lyme Progressive Test TNP E. chaffeensis IgG Ab <1:64 (<1:64) E. chaffeensis IgM Ab <1:20 (<1:20) E. chaffeensis Interp E. chaffeensis Comment See Below Influenza Type A (PCR) NEGATIVE (Negative) Influenza Type B (PCR) NEGATIVE (Negative) RSV RNA Qual (PCR) NEGATIVE (Negative) SARS-CoV-2 RNA (RT-PCR) NEGATIVE (Negative) Radiology Impression Discussion of test interpretation with radiology: I have reviewed the radiologist's reading. Radiologist Impression: CT/CT head/brain wo IV con IMPRESSION: No evidence of intracranial hemorrhage, mass or infarction. No acute intracranial pathology. Independent Historian Clinical information obtained from an independent historian. History obtained from or confirmed by: Spouse Prescription Management I considered prescription management with: Antiviral Discharge Plan Discharge Clinical Impression: Vasques's palsy, Sinusitis Patient Disposition: Home, Self-Care Instructions: Sinusitis (ED), Vasques Palsy (ED) Additional Instructions: Your seen in the emergency department due to facial droop. Your CT of your head was unremarkable. You have a diagnosis called Vasques's palsy, which is temporarily paralysis the facial nerve. This is often caused by a virus. We are treating you with antivirals as well as prednisone. Close take prescribed medication as directed. We will call you with any abnormal results from your labs performed today. You tested negative for COVID, flu, RSV. Alternate between ibuprofen and tylenol as needed for pain. I am also prescribing you an antibiotic as you likely have a sinus infection which can be contributing to your symptoms. You may have dry eyes, you can use lgyy-mug-leiuplu lubricating eyedrops for symptomatic relief. If any new or worsening symptoms occur including but not limited to worsening headache, fevers, chills, numbness, tingling, weakness, chest pain, shortness of breath, please return for re-evaluation. Prescriptions: New prednisone 10 mg tablet 60 mg PO DAILY 7 Days Qty: 42 0RF valacyclovir 1 gram tablet 1,000 mg PO TID 7 Days Qty: 21 0RF amoxicillin-pot clavulanate 875-125 mg tablet 1 tab PO BID 7 Days Qty: 14 0RF No Action naproxen 500 mg tablet 500 mg PO BID PRN (Reason: pain) Qty: 20 0RF cyclobenzaprine 10 mg tablet 10 mg PO TID PRN (Reason: muscle spasm) Qty: 10 0RF lidocaine [Lidoderm] 5 % adhesive patch,medicated 1 patch topical DAILY Qty: 15 0RF Rx Instructions: leave on most painful area for up to 12 hrs cyclobenzaprine 5 mg tablet 5 mg PO Q8H PRN (Reason: pain (scale score 7-10)) 5 Days Qty: 14 0RF lidocaine [Lidoderm] 5 % adhesive patch,medicated 1 patch topical DAILY MDD remove after 12 hours PRN (Reason: pain) Qty: 30 0RF Rx Instructions: leave on most painful area for up to 12 hrs acetaminophen [Tylenol Extra Strength] 500 mg tablet 500 mg PO Q6H PRN (Reason: pain or fever) Qty: 20 0RF prednisone 20 mg tablet 40 mg PO DAILY 5 Days Qty: 10 0RF naproxen 500 mg tablet 500 mg PO BID PRN (Reason: pain) 10 Days Qty: 20 0RF prednisone 20 mg tablet 20 mg PO DAILY Qty: 4 0RF azithromycin 250 mg tablet 250 mg PO DAILY Qty: 4 0RF albuterol sulfate 90 mcg/actuation HFA aerosol inhaler inhalation gabapentin 100 mg capsule PO cholecalciferol (vitamin D3) 50 mcg (2,000 unit) capsule 50 mcg PO DAILY Stand Alone Forms: Work/School Release Interventions: ED Discharge Assessment Last Done: 11/22/23 13:59 Discharge Date/Time: 11/22/23 13:59
[2023-11-22 11:37] LABS: MANUAL DIFF FLAG NO
[2023-11-22 11:47] LABS: Basophils Absolute Auto 0.1 X10*3/uL (0.0-0.2); Basophils Percent Auto 0.7 % (0-2); Eosinophils Absolute Auto 0.3 X10*3/uL (0.0-0.4); Eosinophils Percent Auto 3.2 % (0-4); Hematocrit 44.5 % (42.0-52.0); Hemoglobin 14.9 g/dl (14.0-18.0); Imm Gran Abs Auto 0.04 X10*3/uL (0.00-0.03); Imm Gran Pct Auto 0.5 % (0.0-0.4); Lymphocytes Absolute Auto 1.8 X10*3/uL (1.2-4.9); Lymphocytes Percent Auto 20.5 % (20-40); Mean Corpuscular HGB Conc 33.5 g/dl (31.0-36.0); Mean Corpuscular Hemoglobin 25.4 pg (27.0-33.0); Mean Corpuscular Volume 75.9 fL (80.0-98.0); Mean Platelet Volume 9.2 fL (9.4-12.4); Monocytes Absolute Auto 0.9 X10*3/uL (0.1-1.2); Monocytes Percent Auto 10.5 % (2-11); Neutrophils Absolute Auto 5.7 x10*3/uL (2.0-8.3); Neutrophils Percent Auto 64.6 % (45-73); Platelet Count 269 X10*3/uL (160-400); Red Blood Count 5.86 X10*6/uL (4.60-5.80); Red Cell Distribution Width 14.1 % (11.0-16.0); White Blood Count 8.8 X10*3/uL (4.8-10.8)
[2023-11-22 12:11] LABS: Alanine Aminotransferase 70 U/L (0-40); Albumin Level 4.1 g/dL (3.5-5.0); Alkaline Phosphatase 86 U/L (39-117); Anion Gap 14 (12-20); Aspartate Amino Transferase 57 U/L (5-37); Bilirubin Total 0.6 mg/dL (0.0-1.0); Blood Urea Nitrogen 7 mg/dL (9-16); C Reactive Protein 0.71 mg/dL (< or = 0.50); Calcium 9.3 mg/dL (8.4-10.2); Carbon Dioxide 24 mmol/L (22-29); Chloride 106 mmol/L (96-108); Creatinine Clr Calc Pharmacy 117.3; Estimated Glomerular Filt Rate > 60; Glucose Random 134 mg/dL (60-115); Potassium 3.6 mmol/L (3.3-5.1); Sodium 140 mmol/L (135-145); Total Protein 7.9 g/dL (6.5-8.0)
[2023-11-22 12:22] LABS: Influenza A PCR NEGATIVE (Negative); Influenza B PCR NEGATIVE (Negative); Resp Syncy Virus RNA Qual PCR NEGATIVE (Negative); SARS COV2 PCR INHOUSE NEGATIVE (Negative)
[2023-11-22 12:44] LABS: Erythrocyte Sedimentation Rate 14 MM/HR (0-15)
[2023-11-22 13:16] VITALS: BP 142/87; PULSE 110; RESP 16; TEMP 36.8; O2SAT 95
[2023-11-22] MEDS: Acetaminophen 325 MG TABLET 975 MG PO (13:57)
[2023-11-23 19:58] LABS: Lyme Abs Screen <0.90 index
[2023-11-25 16:08] LABS: A. Phagocytophilum Ab IgG <1:64 (<1:64); A. Phagocytophilum Ab IgM <1:20 (<1:20); E. Chaffeensis Ab IgG <1:64 (<1:64); E. Chaffeensis Ab IgM <1:20 (<1:20)
[2023-11-29 12:43] LABS: Babesia IgG <1:64 titer (<1:64); Babesia IgM <1:20 titer (<1:20)
== END 2023-11-22 13:59 | disposition home or self-care (01) ==
PROVIDERS: Physician Assistant Medical; Emergency Provider Emergency Medicine
DX: G51.0 Bell's palsy (principal); J32.9 Chronic sinusitis, unspecified; Z11.52 Encounter for screening for COVID-19; Z20.828 Contact with and (suspected) exposure to other viral communicable diseases
CPT/HCPCS: 0241U; 36415; 70450; 80053; 85025; 85652; 86140; 86617; 86618; 86666; 86753; 99284

== ENCOUNTER 2023-11-24 10:56 | Outpatient (AMB) | payer MEDICARE, SELFPAY ==
--- NOTE | 2023-11-24 10:59 | MHC.OFFVIS ---
Intake Vital Signs 11/24/23 11:14 Height 5 ft 5 in Weight 265 lb BMI 44.1 Intake Visit Reasons: Rectal bleeding Intake Note: This patient presents for an assessment for rectal bleeding. Pt c/o; reports intermittent rectal bleeding with small blood clots , reports bleeding can starts for 4-5 days and then stop and this is intermittently, reports rectal pressure Counterintelligence Analyst Required: No Accompanied by: Spouse Allergies No Known Allergies [No Known Allergies*] Allergy (Verified 11/24/23 11:16) Medication List - Last Reconciled 11/24/23 by Robel Ngo MD acetaminophen (Tylenol Extra Strength) 500 mg PO Q6H PRN albuterol sulfate 90 mcg/actuation inhalation amoxicillin-pot clavulanate 875-125 mg 1 tab PO BID 7 days azithromycin 250 mg PO DAILY cholecalciferol (vitamin D3) 50 mcg PO DAILY cyclobenzaprine 10 mg PO TID PRN cyclobenzaprine 5 mg PO Q8H PRN 5 days gabapentin mg PO lidocaine 5% (Lidoderm) 1 patch topical DAILY lidocaine 5% (Lidoderm) 1 patch topical DAILY PRN MDD remove after 12 hours naproxen 500 mg PO BID PRN naproxen 500 mg PO BID PRN 10 days prednisone 40 mg (2 x 20 mg) PO DAILY 5 days prednisone 60 mg (6 x 10 mg) PO DAILY 7 days prednisone 20 mg PO DAILY valacyclovir 1,000 mg PO TID 7 days HPI Rectal bleeding HPI Details 38-year-old male referred for passage of bright blood per rectum. He says that he has been noticing this on and off for the past 3-4 months. He says that sometimes there would be 3-4 days where in he would see this with bowel movements. Often times, this would be on the toilet bowl as well. He denies any pain in the anus. He does state that sometimes he would feel some pain on the area of the tailbone He denies changes with his bowel habits. He also mentions that he had a colonoscopy may be about 15 years ago and this was unremarkable. He said he also had passage of blood per rectum at that time. [facility] Medical History (Updated 11/24/23 @ 11:46 by Robel Ngo MD) Rectal bleeding Chronic low back pain Review of Systems Const Denies chills and Denies fever(s) Card Denies chest pain, Denies dyspnea and Denies dyspnea on exertion Resp Denies cough, Denies dyspnea and Denies dyspnea on exertion GI Reports hematochezia and Denies change in bowel habits Denies hematuria and Denies difficulty urinating Musc Denies back pain and Denies limited range of motion Neuro Denies focal weakness and Denies convulsions Psych Denies depression and Denies mood swings Physical Exam Vital Signs: BMI result Body Mass Index 44.1 Const General: comfortable and no acute distress Orientation/consciousness: patient oriented x3 Neck Neck: Yes no lymphadenopathy Resp Auscultation: clear to auscultation bilaterally Cardio Rhythm: regular rhythm GI Other: Rectal exam shows small external hemorrhoids Palpation (GI): Soft to palpation, nontender and no guarding Neuro General: patient oriented x3 Office Procedures Anoscopy He was in satish-knife position. The anoscope was gently inserted. A full examination of the anal canal was done. He had some mix of internal external hemorrhoids. There was no ulceration or obvious fissure. There was no active bleeding. He was uncomfortable with the exam however. He denied any significant tenderness or induration. [id number] Assessment & Plan Assessment & Plan (1) Rectal bleeding: Code(s): K62.5 - Hemorrhage of anus and rectum Plan: He describes passage of bright blood per rectum on and off for the past 2-4 months. He describes some pain in the tailbone as well. Anoscopy does reveal internal external hemorrhoids. However, I told him that I am uncertain as to the etiology of his bleeding. I told him it would be best to proceed with a full colonoscopy. I do not find any record of a previous colonoscopy although he says he may have had this done more than 15 years ago I explained the technique of colonoscopy and I reviewed the risks, benefits, and alternatives He says he does not want to proceed with colonoscopy at this time. I explained to him that this will be helpful for us to see where the etiology of his bleeding might be. I told him to come back to the office or let me know if he decides to proceed. His was with him during the visit. Coding Level of Care Code New Pt Level 3 (56299) Diagnoses Rectal bleeding K62.5 CPT Codes Details - CPT: 22308-Zxwpyakz ([id number])
[2023-11-24 11:14] VITALS: BMI 44.1
== END 2023-11-24 11:41 | disposition home or self-care (01) ==
PROVIDERS: Visit Provider Surgery
DX: K62.5 Hemorrhage of anus and rectum (principal)
CPT/HCPCS: 46600; 99203

== ENCOUNTER → 2023-11-24 10:56 | Outpatient (BNVA) | payer MEDICARE, SELFPAY | PROVIDERS: Visit Provider Surgery | DX: K62.5 Hemorrhage of anus and rectum (principal); K64.8 Other hemorrhoids; K64.4 Residual hemorrhoidal skin tags | CPT/HCPCS: 46600; 99202 ==

== ENCOUNTER 2023-12-17 11:22 | Outpatient (REF) | payer MEDICARE, SELFPAY ==
[2023-12-17 13:45] LABS: MANUAL DIFF FLAG NO
[2023-12-17 13:53] LABS: Basophils Absolute Auto 0.1 X10*3/uL (0.0-0.2); Basophils Percent Auto 0.5 % (0-2); Eosinophils Absolute Auto 0.3 X10*3/uL (0.0-0.4); Eosinophils Percent Auto 2.9 % (0-4); Hematocrit 46.1 % (42.0-52.0); Hemoglobin 15.5 g/dl (14.0-18.0); Imm Gran Abs Auto 0.05 X10*3/uL (0.00-0.03); Imm Gran Pct Auto 0.5 % (0.0-0.4); Lymphocytes Absolute Auto 1.9 X10*3/uL (1.2-4.9); Lymphocytes Percent Auto 19.2 % (20-40); Mean Corpuscular HGB Conc 33.6 g/dl (31.0-36.0); Mean Corpuscular Hemoglobin 25.5 pg (27.0-33.0); Mean Corpuscular Volume 75.9 fL (80.0-98.0); Mean Platelet Volume 9.6 fL (9.4-12.4); Monocytes Absolute Auto 1.2 X10*3/uL (0.1-1.2); Monocytes Percent Auto 12.2 % (2-11); Neutrophils Absolute Auto 6.2 x10*3/uL (2.0-8.3); Neutrophils Percent Auto 64.7 % (45-73); Platelet Count 358 X10*3/uL (160-400); Red Blood Count 6.07 X10*6/uL (4.60-5.80); Red Cell Distribution Width 15.5 % (11.0-16.0); White Blood Count 9.7 X10*3/uL (4.8-10.8)
[2023-12-17 14:10] LABS: Alanine Aminotransferase 83 U/L (0-40); Albumin Level 4.5 g/dL (3.5-5.0); Alkaline Phosphatase 72 U/L (39-117); Anion Gap 15 (12-20); Aspartate Amino Transferase 68 U/L (5-37); Blood Urea Nitrogen 9 mg/dL (9-16); Calcium 10.1 mg/dL (8.4-10.2); Carbon Dioxide 26 mmol/L (22-29); Chloride 99 mmol/L (96-108); Estimated Glomerular Filt Rate > 60; Glucose Random 116 mg/dL (60-115); Potassium 3.8 mmol/L (3.3-5.1); Sodium 136 mmol/L (135-145); Total Protein 8.7 g/dL (6.5-8.0)
[2023-12-20 20:08] LABS: Lyme Abs Screen <0.90 index
[2023-12-20 20:48] LABS: Herpes Simplex Type 2 IgG <0.90 index
== END 2023-12-17 11:23 | disposition home or self-care (01) ==
LOC: HO.HHCL 11:22
PROVIDERS: Visit Provider Nurse Practitioner Family
DX: G51.0 Bell's palsy (principal)
CPT/HCPCS: 36415; 80053; 85025; 86617; 86618; 86695; 86696

== ENCOUNTER 2024-02-21 11:14 | Emergency (ER) | payer MEDICARE, MEDICAID, SELFPAY ==
--- NOTE | ~2024-02-21 | CT_ITS ---
EXAMINATION: CT HEAD WITHOUT CONTRAST CLINICAL INFORMATION: Headache COMPARISON: CT head from 11/22/2023 TECHNIQUE: Contiguous axial imaging was performed from the skull base to vertex without intravenous administration of contrast. This CT examination was performed using dose optimization techniques as appropriate, variously including the following: *Automated exposure control *Adjustment of mA and/or kV according to patient size (this includes techniques or standardized protocols for targeted exams where dose is matched to indication/reason for exam; i.e. extremities or head) *Use of iterative reconstruction technique DLP: 1539 mGy-cm FINDINGS: There is no evidence of acute intracranial hemorrhage or territorial infarction. No abnormal mass effect or midline shift is seen. Vanegas to white matter differentiation is well preserved. No extra-axial fluid collections are identified. The ventricles are normal in size. There is no abnormal attenuation within the brain parenchyma. The osseous structures and soft tissues are normal. The mastoid air cells and visualized portions of the paranasal sinuses are well aerated. CT/CT head/brain wo IV con IMPRESSION: No acute intracranial pathology.
--- NOTE | ~2024-02-21 | CT_ITS ---
CT SOFT TISSUE NECK WITH CONTRAST CLINICAL INFORMATION: Dysphagia. Question mass. COMPARISON: None available. TECHNIQUE: Following the intravenous administration of 100 mL of Omnipaque 350 intravenous contrast, helical imaging was performed in the axial plane with generation of coronal and sagittal reformatted images. This CT examination was performed using dose optimization techniques as appropriate, variously including the following: *Automated exposure control *Adjustment of mA and/or kV according to patient size (this includes techniques or standardized protocols for targeted exams where dose is matched to indication/reason for exam; i.e. extremities or head) *Use of iterative reconstruction technique FINDINGS: There is partially imaged lymphadenopathy throughout the mediastinum and involving the right and left hilum. Waldeyer's ring is diffusely enlarged and there is some irregular nodular soft tissue involving the nasopharynx and the base of tongue effacing the vallecula bilaterally, greater on the right side. Small lymph nodes throughout the neck bilaterally. Differential considerations include lymphoproliferative malignancy including lymphoma, metastatic disease, or an underlying infectious or inflammatory process. A PET and/or CT of the chest, abdomen, and pelvis are recommended for further assessment. The supraglottic larynx is small in size with adjacent circumferential soft tissue that can be correlated with direct visual inspection. Orbital soft tissues, parotid glands, and submandibular glands are unremarkable. A 2.3 cm exophytic heterogeneous nodule arising from the lower pole of the left thyroid gland can be further assessed with thyroid ultrasound. Laryngeal structures are closely opposed in phonation and therefore not well assessed. 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 No acute or suspicious osseous findings. Leftward deviation of the nasal septum with a leftward directed nasal septal spur. Paranasal sinuses and the mastoid air cells are clear. The TMJs are unremarkable. Partially imaged intracranial compartment is unremarkable. Imaged upper lungs are clear. CT/CT soft tissue neck w IV con IMPRESSION: - There is partially imaged lymphadenopathy throughout the mediastinum and involving the right and left hilum. Waldeyer's ring is diffusely enlarged and there is some irregular nodular soft tissue involving the nasopharynx and the base of tongue effacing the vallecula bilaterally, greater on the right side. Small lymph nodes throughout the neck bilaterally. Differential considerations include lymphoproliferative malignancy including lymphoma, metastatic disease, or an underlying infectious or inflammatory process. A PET and/or CT of the chest, abdomen, and pelvis are recommended for further assessment. - The supraglottic larynx is small in size with adjacent circumferential soft tissue that can be correlated with direct visual inspection. - There is atlantooccipital assimilation bilaterally and there is basilar invagination with the high riding dens narrowing foramen magnum. - A 2.3 cm exophytic heterogeneous nodule arising from the lower pole of the left thyroid gland can be further assessed with thyroid ultrasound.
[2024-02-21 12:41] VITALS: BP 151/106; PULSE 130; RESP 18; TEMP 36.3; O2SAT 97; BMI 37.1
--- NOTE | 2024-02-21 12:42 | ED.GENADULT ---
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 Patient reports that in association with dysphagia he has headache that starts at the base of his neck posteriorly and radiates to the occiput. The patient reports the pain is [id number] in intensity, he denies odynophagia, abdominal pain nausea or vomiting. Reports that he has not been able to eat any solid food in the past 3 4 days and that every time he tries to drink water he chokes. He denies chest pain, shortness of breath, no reported episodes of stridor. Related Data Home Medications ?Medication ?Instructions ?Recorded ?Confirmed albuterol sulfate 90 mcg/actuation inhalation 10/17/20 11/24/23 aerosol inhaler cholecalciferol (vitamin D3) 50 50 mcg PO DAILY 10/17/20 11/24/23 mcg (2,000 unit) capsule gabapentin 100 mg capsule mg PO 10/17/20 11/24/23 Previous Rx's ?Medication ?Instructions ?Recorded cyclobenzaprine 10 mg tablet 10 mg PO TID PRN muscle spasm #10 01/02/21 tabs lidocaine 5 % topical patch 1 patch topical DAILY #15 ea 01/02/21 (Lidoderm) naproxen 500 mg tablet 500 mg PO BID PRN pain #20 tabs 01/02/21 acetaminophen 500 mg tablet 500 mg PO Q6H PRN pain or fever 07/28/21 (Tylenol Extra Strength) #20 tabs cyclobenzaprine 5 mg tablet 5 mg PO Q8H PRN pain (scale score 07/28/21 7-10) 5 days #14 tabs lidocaine 5 % topical patch 1 patch topical DAILY PRN pain #30 07/28/21 (Lidoderm) ea naproxen 500 mg tablet 500 mg PO BID PRN pain 10 days #20 07/28/21 tabs prednisone 20 mg tablet 40 mg (2 x 20 mg) PO DAILY 5 days 07/28/21 #10 tabs azithromycin 250 mg tablet 250 mg PO DAILY #4 tabs 12/10/22 prednisone 20 mg tablet 20 mg PO DAILY #4 tabs 12/10/22 amoxicillin 875 mg-potassium 1 tab PO BID 7 days #14 tabs 11/22/23 clavulanate 125 mg tablet prednisone 10 mg tablet 60 mg (6 x 10 mg) PO DAILY 7 days 11/22/23 #42 tabs valacyclovir 1 gram tablet 1,000 mg PO TID 7 days #21 tabs 11/22/23 Allergies Allergy/AdvReac Type Severity Reaction Status Date / Time No Known Allergies Allergy Verified 02/21/24 12:45 [No Known Allergies*] Review of Systems Review of Systems: Yes all other systems are reviewed and are negative [facility] Past Medical History Medical History (Updated 02/21/24 @ 18:14 by Brandyn Luque MD) Rectal bleeding Chronic low back pain Social History Social History Alcohol intake: never Smoked in Last 30 Days: No Use of substances other than those prescribed or required for medical reasons: No Advance Directives: No Advance Directives Information Provided: Yes Do you have a plan to hurt others: No Plan Physical Exam ED Vital Signs: Vital Signs - 24 hr 02/21/24 12:41 02/21/24 15:11 02/21/24 15:37 Temperature 97.3 F 97.5 F 98.4 F Pulse Rate 130 H 128 H 121 H Respiratory Rate 18 17 21 H Blood Pressure 151/106 H 150/106 H 140/97 H Pulse Oximetry 97 98 98 Oxygen Delivery Method Room Air Room Air Room Air BMI result Body Mass Index 37.1 General: Alert, Not in Distress Skin: No rash, warm HEENT: Atraumatic, No Exudate or Pharyngeal Erythema Resp: Normal Breath sounds bilaterally Cardio: Regular rate and Rhythm, Normal S1, S2 ABD: Abd soft, non tender, no guarding or rebound. Normal Bowel sounds. : No cva tenderness Neuro: Alert, oriented x4, PERRL Strenght 5/5 on all extremities Sensation is preserved in both lower and upper extremities Index to nose: normal Cranial Nerves II-XII grossly intact No dysarthria, or aphasia No neglet. Visual alba are normal bilaterally Psych: Cooperative, NO SI Course Course Course Narrative: RME performed by Shanice Case PA-C. Patient is a 38 year old assigned male at presenting to the emergency department with difficulty swallowing. Patient states over the last week he has been unable to swallow food or liquid. Patient states that when he tries to swallow, he throws it back up. Patient states that he has history of left sided bells palsy and his left sided facial droop is not new for him. Detailed physical exam and review of systems are deferred to the physician assistant primary care. Labs and swabs ordered. Patient placed back in the waiting room pending room availability and results. Reevaluation(s) Reevaluation #1: Patient's imaging showed diffuse lymphadenopathy, concerning for malignancy, in addition reviewing patient's blood work he has hypercalcemia which may be a sign of paraneoplastic syndrome. Patient continues to have dysphagia, consulted hospitalist recommended transfer to tertiary care center were there is ENT service. Patient otherwise hemodynamically stable. Transfer line at [facility] contacted. Time: 17:44 Reevaluation #2: Patient is accepted at [facility]. Hemodynamically stable but tachycardic but no concern for airway at this time. We will transfer to [place] ED under care of Dr. Zimmerman. Time: 18:12 Medications Administered Discontinued Medications Generic Name Dose Route Start Last Admin Trade Name Freq PRN Reason Stop Dose Admin Acetaminophen 975 mg 02/21/24 15:04 02/21/24 15:10 Acetaminophen 325 Mg Tablet PO 02/21/24 15:05 975 mg ONCE ONE Administration Sodium Chloride 500 mls @ 999 mls/hr 02/21/24 14:00 02/21/24 15:14 Ns IV 02/21/24 14:30 Infused .Q31M JIA Infusion Iohexol 100 ml 02/21/24 15:33 02/21/24 15:33 Iohexol 350 Mg/Ml 100 Ml Infus..Btl IV 02/21/24 15:34 60 ml ONCE ONE Administration Ketorolac Tromethamine 15 mg 02/21/24 13:50 02/21/24 14:03 Ketorolac Tromethamine 15 Mg/Ml Vial IVPUSH 02/21/24 13:51 15 mg ONCE ONE Administration Medical Decision Making Admission/Observation Consideration of admission/observation: Escalation of care including admission/observation considered Consult Healthcare Provider Management of the patient was discussed with: Hospitalist (Recommended transfer to tertiary [facility]) Lab Data MDM Lab Attestation statement: I reviewed the patient's lab results. 02/21/24 13:13 02/21/24 13:13 Labs: Lab Results 02/21/24 02/21/24 Range/Units 13:10 13:13 WBC 7.1 (4.8-10.8) X10*3/uL RBC 5.75 (4.60-5.80) X10*6/uL Hgb 15.2 (14.0-18.0) g/dl Hct 44.6 (42.0-52.0) % MCV 77.6 L (80.0-98.0) fL MCH 26.4 L (27.0-33.0) pg MCHC 34.1 (31.0-36.0) g/dl RDW 13.2 (11.0-16.0) % Plt Count 296 (160-400) X10*3/uL MPV 9.5 (9.4-12.4) fL Immature Gran % (Auto) 0.4 (0.0-0.4) % Neut % (Auto) 61.3 (45-73) % Lymph % (Auto) 23.1 (20-40) % Hernando % (Auto) 12.4 H (2-11) % Eos % (Auto) 2.0 (0-4) % Baso % (Auto) 0.8 (0-2) % Lymph # (Auto) 1.6 (1.2-4.9) X10*3/uL Hernando # (Auto) 0.9 (0.1-1.2) X10*3/uL Eos # (Auto) 0.1 (0.0-0.4) X10*3/uL Baso # (Auto) 0.1 (0.0-0.2) X10*3/uL Abs Immat Gran (auto) 0.03 (0.00-0.03) X10*3/uL Absolute Neuts (auto) 4.4 (2.0-8.3) x10*3/uL Absolute Nucleated RBC 0.000 (0.0-0.012) X10*3/uL Nucleated RBC % (auto) 0.0 (0.0-0.2) /100WBC Sodium 140 (135-145) mmol/L Potassium 3.7 (3.3-5.1) mmol/L Chloride 100 (96-108) mmol/L Carbon Dioxide 26 (22-29) mmol/L Anion Gap 18 (12-20) BUN 13 (9-16) mg/dL Creatinine 0.86 (0.5-1.4) mg/dL Estim Creat Clear Calc 127.4 Estimated GFR > 60 Random Glucose 115 (60-115) mg/dL Calcium 10.5 H (8.4-10.2) mg/dL Magnesium 1.9 (1.6-2.6) mg/dL Total Bilirubin 0.8 (0.0-1.0) mg/dL AST 49 H (5-37) U/L ALT 53 H (0-40) U/L Alkaline Phosphatase 91 (39-117) U/L Lactate Dehydrogenase 234 (118-273) U/L Total Protein 8.4 H (6.5-8.0) g/dL Albumin 4.3 (3.5-5.0) g/dL TSH 0.42 (0.32-4.0) uIU/mL COVID-19 (VON) Negative (Negative) COVID-19 Clin Com See Note Influenza Type A (PCR) NEGATIVE (Negative) Influenza Type B (PCR) NEGATIVE (Negative) RSV RNA Qual (PCR) NEGATIVE (Negative) SARS-CoV-2 RNA (RT-PCR) NEGATIVE (Negative) Independent Interpretation I performed an independent interpretation of an: CT Scan (I personally reviewed and interpreted patient's CT head: No intracranial bleed) Radiology Impression Discussion of test interpretation with radiology: I have reviewed the radiologist's reading. Radiologist Impression: CT/CT soft tissue neck w IV con IMPRESSION: - There is partially imaged lymphadenopathy throughout the mediastinum and involving the right and left hilum. Waldeyer's ring is diffusely enlarged and there is some irregular nodular soft tissue involving the nasopharynx and the base of tongue effacing the vallecula bilaterally, greater on the right side. Small lymph nodes throughout the neck bilaterally. Differential considerations include lymphoproliferative malignancy including lymphoma, metastatic disease, or an underlying infectious or inflammatory process. A PET and/or CT of the chest, abdomen, and pelvis are recommended for further assessment. - The supraglottic larynx is small in size with adjacent circumferential soft tissue that can be correlated with direct visual inspection. - There is atlantooccipital assimilation bilaterally and there is basilar invagination with the high riding dens narrowing foramen magnum. - A 2.3 cm exophytic heterogeneous nodule arising from the lower pole of the left thyroid gland can be further assessed with thyroid ultrasound. Discharge Plan Discharge Clinical Impression: Dysphagia, Lymphadenopathy of head and neck, Hypercalcemia Patient Disposition: [facility] Transfer Details: transfer to [facility] ED to ED Prescriptions: No Action naproxen 500 mg tablet 500 mg PO BID PRN (Reason: pain) Qty: 20 0RF cyclobenzaprine 10 mg tablet 10 mg PO TID PRN (Reason: muscle spasm) Qty: 10 0RF lidocaine [Lidoderm] 5 % adhesive patch,medicated 1 patch topical DAILY Qty: 15 0RF Rx Instructions: leave on most painful area for up to 12 hrs cyclobenzaprine 5 mg tablet 5 mg PO Q8H PRN (Reason: pain (scale score 7-10)) 5 Days Qty: 14 0RF lidocaine [Lidoderm] 5 % adhesive patch,medicated 1 patch topical DAILY MDD remove after 12 hours PRN (Reason: pain) Qty: 30 0RF Rx Instructions: leave on most painful area for up to 12 hrs acetaminophen [Tylenol Extra Strength] 500 mg tablet 500 mg PO Q6H PRN (Reason: pain or fever) Qty: 20 0RF prednisone 20 mg tablet 40 mg PO DAILY 5 Days Qty: 10 0RF naproxen 500 mg tablet 500 mg PO BID PRN (Reason: pain) 10 Days Qty: 20 0RF prednisone 20 mg tablet 20 mg PO DAILY Qty: 4 0RF azithromycin 250 mg tablet 250 mg PO DAILY Qty: 4 0RF prednisone 10 mg tablet 60 mg PO DAILY 7 Days Qty: 42 0RF valacyclovir 1 gram tablet 1,000 mg PO TID 7 Days Qty: 21 0RF amoxicillin-pot clavulanate 875-125 mg tablet 1 tab PO BID 7 Days Qty: 14 0RF albuterol sulfate 90 mcg/actuation HFA aerosol inhaler inhalation gabapentin 100 mg capsule PO cholecalciferol (vitamin D3) 50 mcg (2,000 unit) capsule 50 mcg PO DAILY Print Language: Setswana
[2024-02-21 13:17] LABS: MANUAL DIFF FLAG NO
[2024-02-21 13:32] LABS: Basophils Absolute Auto 0.1 X10*3/uL (0.0-0.2); Basophils Percent Auto 0.8 % (0-2); Eosinophils Absolute Auto 0.1 X10*3/uL (0.0-0.4); Hematocrit 44.6 % (42.0-52.0); Hemoglobin 15.2 g/dl (14.0-18.0); Imm Gran Abs Auto 0.03 X10*3/uL (0.00-0.03); Imm Gran Pct Auto 0.4 % (0.0-0.4); Lymphocytes Absolute Auto 1.6 X10*3/uL (1.2-4.9); Lymphocytes Percent Auto 23.1 % (20-40); Mean Corpuscular HGB Conc 34.1 g/dl (31.0-36.0); Mean Corpuscular Hemoglobin 26.4 pg (27.0-33.0); Mean Corpuscular Volume 77.6 fL (80.0-98.0); Mean Platelet Volume 9.5 fL (9.4-12.4); Monocytes Absolute Auto 0.9 X10*3/uL (0.1-1.2); Monocytes Percent Auto 12.4 % (2-11); Neutrophils Absolute Auto 4.4 x10*3/uL (2.0-8.3); Neutrophils Percent Auto 61.3 % (45-73); Platelet Count 296 X10*3/uL (160-400); Red Blood Count 5.75 X10*6/uL (4.60-5.80); Red Cell Distribution Width 13.2 % (11.0-16.0); White Blood Count 7.1 X10*3/uL (4.8-10.8)
[2024-02-21 13:34] LABS: COVID-19 Test Negative (Negative); IDNOW Serial# 152EDE1D
[2024-02-21 13:46] LABS: Alanine Aminotransferase 53 U/L (0-40); Albumin Level 4.3 g/dL (3.5-5.0); Alkaline Phosphatase 91 U/L (39-117); Anion Gap 18 (12-20); Aspartate Amino Transferase 49 U/L (5-37); Bilirubin Total 0.8 mg/dL (0.0-1.0); Blood Urea Nitrogen 13 mg/dL (9-16); Calcium 10.5 mg/dL (8.4-10.2); Carbon Dioxide 26 mmol/L (22-29); Chloride 100 mmol/L (96-108); Creatinine Clr Calc Pharmacy 127.4; Estimated Glomerular Filt Rate > 60; Glucose Random 115 mg/dL (60-115); Magnesium 1.9 mg/dL (1.6-2.6); Potassium 3.7 mmol/L (3.3-5.1); Sodium 140 mmol/L (135-145); Total Protein 8.4 g/dL (6.5-8.0)
[2024-02-21 13:57] LABS: Influenza A PCR NEGATIVE (Negative); Influenza B PCR NEGATIVE (Negative); Resp Syncy Virus RNA Qual PCR NEGATIVE (Negative); SARS COV2 PCR INHOUSE NEGATIVE (Negative)
[2024-02-21] MEDS: Ketorolac Tromethamine 15 MG/ML VIAL IVPUSH (14:03)
[2024-02-21] MEDS: 0.9 % Sodium Chloride 500 ML 999 ML IV (14:04)
[2024-02-21] MEDS: Acetaminophen 325 MG TABLET 975 MG PO (15:10)
[2024-02-21 15:11] VITALS: BP 150/106; PULSE 128; RESP 17; TEMP 36.4; O2SAT 98
[2024-02-21] MEDS: iohexoL 350 MG/ML 100 ML INFUS..BTL IV (15:33)
[2024-02-21 15:37] VITALS: BP 140/97; PULSE 121; RESP 21; TEMP 36.9; O2SAT 98
[2024-02-21 17:19] LABS: Lactate Dehydrogenase 234 U/L (118-273)
[2024-02-21 17:41] LABS: Thyroid Stimulating Hormone 0.42 uIU/mL (0.32-4.0)
--- NOTE | 2024-02-21 17:55 | PM.HEMONCCN ---
Subjective - Subjective Chief complaint: Consult for: Lymphadenopathy. Patient: new to practice Consult date: 02/21/24 Requesting Physician: Dago. Primary Care Provider: [facility] Family Provider: MONE. Medical Summary: DIAGNOSIS: Lymphadenopathy. HPI - Consult Narrative Reason for consult: Consult for: Lymphadenopathy. Narrative: Cate Souza is a 38 year old gentleman,with a H/O of Vasques's palsy 3 months ago. He underwent a week of steroids without improvement of his symptoms. He presented to the emergency room with a 10 days history of dysphagia to both solids and liquids. He has headache that starts at the base of his neck posteriorly and radiates to the occiput. The patient reports the pain is qdab-do-rksogess in intensity. He denies odynophagia, abdominal pain nausea or vomiting. Reports that he has not been able to eat any solid food in the past 3 4 days and that every time he tries to drink water he chokes. He denies chest pain, shortness of breath, no reported episodes of stridor. DATABASE: CBC: WBC 7.1, HGB 15.2, PLT 296. CMP: Hayden 10.5. Total protein: 8.4. LFTs: 0.8/91/49/53. CT scan of the head and neck soft tissues revealed: - There is partially imaged lymphadenopathy throughout the mediastinum and involving the right and left hilum. Waldeyer's ring is diffusely enlarged and there is some irregular nodular soft tissue involving the nasopharynx and the base of tongue effacing the vallecula bilaterally, greater on the right side. Small lymph nodes throughout the neck bilaterally. Differential considerations include lymphoproliferative malignancy including lymphoma, metastatic disease, or an underlying infectious or inflammatory process. A PET and/or CT of the chest, abdomen, and pelvis are recommended for further assessment. - The supraglottic larynx is small in size with adjacent circumferential soft tissue that can be correlated with direct visual inspection. - There is atlantooccipital assimilation bilaterally and there is basilar invagination with the high riding dens narrowing foramen magnum. - A 2.3 cm exophytic heterogeneous nodule arising from the lower pole of the left thyroid gland can be further assessed with thyroid ultrasound. CT scan of the head revealed: No acute intracranial abnormality. Review of Systems - Constitutional Reports system reviewed and no additional complaints, except as documented, Reports fatigue, Reports lack of energy, Reports malaise, Reports poor appetite, Reports weight loss - Eyes Reports system reviewed and no additional complaints, except as documented - ENT Reports system reviewed and no additional complaints, except as documented - Cardiovascular Reports system reviewed and no additional complaints, except as documented - Respiratory Reports no additional respiratory complaints - Gastrointestinal Reports system reviewed and no additional complaints, except as documented - Genitourinary Genitourinary: Reports no additional male genitourinary complaints - Musculoskeletal Reports system reviewed and no additional complaints, except as documented - Integumentary/Breasts Skin/Breast: Reports no additional skin complaints - Neurologic Reports system reviewed and no additional complaints, except as documented - Psychiatric Reports system reviewed and no additional complaints, except as documented - Endocrine Reports no additional endocrine complaints - Hematologic/Lymphatic Reports system reviewed and no additional complaints, except as documented - Allergic/Immunologic Reports system reviewed and no additional complaints, except as documented Oncology Screenings - ECOG Performance Status ECOG Performance Status: 1 [facility] Medical History: Medical History (Last Updated 11/24/23 @ 11:46 by Robel Ngo MD) Chronic low back pain Rectal bleeding Functional capacity: uses cane/walker Patient : No Social History: Social History (Last Reviewed 11/24/23 @ 11:45 by Robel Ngo MD) Tobacco History: Smoked in Last 30 Days: No Substance Use History: Use of substances other than those prescribed or required for medical reasons: No Advance Directives: Advance Directives: No Advance Directives Information Provided: Yes Homicidal Assessment: Do you have a plan to hurt others: No Plan Nutrition Assessment: Patient : No Home Medications and Allergies Home Medications ?Medication ?Instructions ?Recorded ?Confirmed ?Type albuterol sulfate 90 mcg/actuation inhalation 10/17/20 11/24/23 History aerosol inhaler cholecalciferol (vitamin D3) 50 50 mcg PO DAILY 10/17/20 11/24/23 History mcg (2,000 unit) capsule gabapentin 100 mg capsule mg PO 10/17/20 11/24/23 History Allergies Allergy/AdvReac Type Severity Reaction Status Date / Time No Known Allergies Allergy Verified 02/21/24 12:45 [No Known Allergies*] Physical Exam Vital signs: Vital Signs Temp 98.4 F 02/21/24 15:37 Pulse 121 H 02/21/24 15:37 Resp 21 H 02/21/24 15:37 BP 140/97 H 02/21/24 15:37 Pulse Ox 98 02/21/24 15:37 O2 Del Method Room Air 02/21/24 15:37 Intake & Output 02/20/24 02/21/24 02/21/24 18:59 06:59 18:59 Intake Total 500 / 500 Balance 500 / 500 Intake: Intake, IV Amount 500 / 500 0.9 % Sodium Chloride 500 ml @ 500 / 500 999 mls/hr IV .Q31M [facility] Rx#: [id number] Other: Weight 101.2 kg Weight 101.2 kg - Constitutional Present: moderate distress - Routine HEENT Exam Head: Present: normal inspection, normocephalic Eye: Present: normal appearance, PERRL ENT: Present: mucous membranes moist - Routine Neck Exam Present: supple Hem/Onc Consult Result - Labs CBC & Chem 7: 02/21/24 13:13 02/21/24 13:13 Labs: Short CBC 02/21/24 Range/Units 13:13 WBC 7.1 (4.8-10.8) X10*3/uL Hgb 15.2 (14.0-18.0) g/dl Hct 44.6 (42.0-52.0) % Plt Count 296 (160-400) X10*3/uL BMP 02/21/24 13:13 Sodium 140 Potassium 3.7 Chloride 100 Carbon Dioxide 26 BUN 13 Creatinine 0.86 Calcium 10.5 H Liver Function 02/21/24 Range/Units 13:13 Total Bilirubin 0.8 (0.0-1.0) mg/dL AST 49 H (5-37) U/L ALT 53 H (0-40) U/L Alkaline Phosphatase 91 (39-117) U/L Albumin 4.3 (3.5-5.0) g/dL Assessment and Plan Patient Active problem list reviewed?: Yes (1) Lymphadenopathy of head and neck Status: Acute Assessment and plan: 38-year-old gentleman with history of Vasques's palsy, now presents with sore throat and dysphagia. DATABASE: CBC: WBC 7.1, HGB 15.2, PLT 296. CMP: Hayden 10.5. Total protein: 8.4. LFTs: 0.8/91/49/53. CT scan of the head and neck soft tissues revealed: - There is partially imaged lymphadenopathy throughout the mediastinum and involving the right and left hilum. Waldeyer's ring is diffusely enlarged and there is some irregular nodular soft tissue involving the nasopharynx and the base of tongue effacing the vallecula bilaterally, greater on the right side. Small lymph nodes throughout the neck bilaterally. Differential considerations include lymphoproliferative malignancy including lymphoma, metastatic disease, or an underlying infectious or inflammatory process. A PET and/or CT of the chest, abdomen, and pelvis are recommended for further assessment. - The supraglottic larynx is small in size with adjacent circumferential soft tissue that can be correlated with direct visual inspection. - There is atlantooccipital assimilation bilaterally and there is basilar invagination with the high riding dens narrowing foramen magnum. - A 2.3 cm exophytic heterogeneous nodule arising from the lower pole of the left thyroid gland can be further assessed with thyroid ultrasound. CT scan of the head revealed: No acute intracranial abnormality. Concern is for Malignancy, likely Lymphoma. LDH: 234. D/D: Metastatic cancer. PLAN: To proceed with further evaluation. Imaging of chest/abdomen and pelvis. EGD and biopsy of the nasopharynx. (ENT not available in-house.) Labs including monospot, SIEP, Free light chain ratio. Thyroid ultrasound. Further plan based upon the results of biopsy. Pt. was later transferred to [facility] ED, since the ENT service was available there. Thanks, - Time Spent With Patient Time Spent with Patient (in minutes): 25
[2024-02-21 18:14] VITALS: BP 135/85; PULSE 133; RESP 16; TEMP 36.7; O2SAT 97
[2024-02-21] MEDS: 0.9 % Sodium Chloride 1,000 ML 999 ML IV (18:16)
--- NOTE | 2024-02-21 18:16 | PC.NURSE ---
Per ED provider patient is being transferred to [facility], blood cultures do not need to be drawn
--- NOTE | 2024-02-21 19:24 | MHC.EDTECH ---
Called [facility] [place] line @ 17:[address] Marks. [facility] @ [facility] said closed to patients that are stable. Called [facility] [place] line @ 17:47 and spoke to Delaney from Bed Management. Patient was accepted by Dr. Zimmerman
--- NOTE | 2024-02-21 19:32 | PC.NURSE ---
Patient returned from CT scan, moved with assist of 3 to bedside commode. Bed cleansed, patient cleansed, new purewick placed.
[2024-02-21 21:42] VITALS: BP 145/101; PULSE 123; RESP 30; TEMP 36.8; O2SAT 98
--- NOTE | 2024-02-21 22:01 | MHC.EDTECH ---
Morales Tobar for a consult
[2024-02-21] MEDS: Ketorolac Tromethamine 30 MG/ML VIAL 15 MG IVPUSH (22:07)
--- NOTE | 2024-02-21 22:38 | PC.NURSE ---
Nurse to Nurse report completed at [facility] Triage.
[2024-02-22 13:58] LABS: Lyme Abs Screen <0.90 index
== END 2024-02-21 22:40 | disposition short-term general hospital (02) ==
PROVIDERS: Internal Medicine; Physician Assistant Medical; Emergency Provider Student in an Organized Health Care Education/Training Program
DX: R13.10 Dysphagia, unspecified (principal); R59.0 Localized enlarged lymph nodes; E83.52 Hypercalcemia; G51.0 Bell's palsy; Z03.818 Encounter for observation for suspected exposure to other biological agents ruled out; Z11.52 Encounter for screening for COVID-19
CPT/HCPCS: 0241U; 36415; 70450; 70491; 80053; 83615; 83735; 84443; 85025; 86617; 86618; 87635; 96361; 96374; 96376; 99284; 99285; J1885; Q9967

== ENCOUNTER → 2024-02-21 12:55 | Outpatient (BNV) | payer MEDICARE, MEDICAID, SELFPAY | PROVIDERS: Emergency Provider Student in an Organized Health Care Education/Training Program; Visit Provider Internal Medicine Medical Oncology | DX: R13.10 Dysphagia, unspecified (principal); M54.2 Cervicalgia | CPT/HCPCS: 99222 ==

== ENCOUNTER 2024-03-30 10:30 | Outpatient (REF) | payer MEDICARE, MEDICAID, SELFPAY ==
--- NOTE | ~2024-03-30 | US_ITS ---
EXAMINATION: US THYROID CLINICAL INFORMATION: Nontoxic single thyroid nodule. COMPARISON: CT soft tissue neck with contrast 02/21/2024. TECHNIQUE: Linear transducer grayscale and color Doppler examination with attention to the region of the thyroid. FINDINGS: SIZE: Measurements of the thyroid lobes and nodules are given in sagittal, anteroposterior and transverse dimensions respectively. Right Thyroid Lobe: 4.7 x 1.7 x 2.2 cm, volume 9.2 mL. Parenchyma: The gland echotexture is homogeneous. Thyroid vascularity is normal. Left Thyroid Lobe: 4.2 x 1.6 x 1.9 cm, volume 6.7 mL. Parenchyma: The gland echotexture is homogeneous. Thyroid vascularity is normal. Isthmus: 0.31 cm in maximum AP dimension. Estimated total number of nodules greater than or equal to 1 cm: 1. Tractor Distributor nodules are described as follows: 1. Location: Left inferior. Size: 1.5 x 1.2 x 1.4 cm, volume 1.3 mL. Nodule characteristics: Composition: Solid (2). Echogenicity: Isoechoic (1). Shape: Not taller than wide (0). Margins: Smooth (0). Echogenic Foci: None (0). ACR TI-RADS total points: 3 ACR TI-RADS category: 3 NODES: No lymphadenopathy is seen in the tissue surrounding the thyroid gland. US/US thyroid IMPRESSION: A 1.5 cm inferior left thyroid lobe TR 3 nodule is seen, as detailed. Recommend continued thyroid ultrasound surveillance. ACR TI-RADS RECOMMENDATION REFERENCE: Ultrasound-guided fine-needle aspiration, followup ultrasound, no further follow up. * TR1 (0 point) and TR2 (2 points): No FNA or follow up. * TR3 (3 points): FNA if more than or equal to 2.5 cm in maximum dimension, followup ultrasound in 1, 3 and 5 years if 1.5 to 2.4 cm in maximum dimension. * TR4 (4-6 points): FNA if more than or equal to 1.5 cm in maximum dimension, followup ultrasound in 1, 2, 3 and 5 years if 1 to 1.4 cm in maximum dimension. * TR5 (more than or equal to 7 points): FNA if more than or equal to 1 cm in maximum dimension, followup ultrasound every year for 5 years if 0.5 to 0.9 cm in maximum dimension. * TR3, TR4 or TR5 nodules that are below the size threshold for followup receive no follow up.
== END 2024-03-30 10:31 | disposition home or self-care (01) ==
LOC: HO.US 10:30
PROVIDERS: PCP Nurse Practitioner Family; Visit Provider Nurse Practitioner Family
DX: E04.1 Nontoxic single thyroid nodule (principal)
CPT/HCPCS: 76536

== ENCOUNTER 2024-05-02 15:08 | Outpatient (AMB) | payer MEDICARE, MEDICAID, SELFPAY ==
[2024-05-02 15:16] VITALS: PULSE 89; O2SAT 97; BMI 39.4
--- NOTE | 2024-05-02 15:16 | MHC.OFFVIS ---
Vital Signs 05/02/24 15:16 Height 5 ft 5 in Weight 237 lb BMI 39.4 Pulse 89 Pulse Source Pulse Oximeter Pulse Oximetry (%) 97 Oxygen Delivery Method Room Air Intake Visit Reasons: Sarcoidosis Solar Installer Required: No Allergies No Known Allergies [No Known Allergies*] Allergy (Verified 05/02/24 15:17) HPI Comments Details: The patient is here for pulmonary evaluation. The patient is a 38-year-old gentleman with a known history of asthma and obstructive sleep apnea who apparently was in his usual state health until back in November. 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 Then developed difficulty swallowing. he had been evaluated several times. Although not a clear etiology was found. Was not until his symptoms worsened to the point that he could not swallow at all that he was evaluated in the ER. There was concern for meningitis and for potential acute neurological issue or subacute. The patient was subsequently transferred to [facility]. There he had a CTA. I did personally review the report. Has significant lymphadenopathy. The patient also had an MRI of the brain demonstrating some potential enhancement over the internal ear canal where he has the persistent does palsy. The patient is placed on acyclovir. He was also treated for meningitis and also underwent I believe a bronchoscopy based on the patient's history and underwent biopsy or needle aspirations of the mediastinal lymph nodes diagnose any with sarcoidosis. He was placed on 60 mg of prednisone he was also placed on acyclovir. He was subsequently discharged from the hospital with pulmonary follow-up. I am seeing him today. He is feeling a little better. Although he still has the Vasuqes's palsy. He is doing the Antiviral therapy. No evidence of any sarcoid lesions on his MRI of the brain which is reassuring. although, does not completely rule it out. His swallow is better at this time. The patient does complain of some shortness of breath. He also has untreated sleep apnea. The patient did try CPAP but did not tolerated many years ago. During the evaluation was noted that he was having significant tachycardia. His heart rate at rest of about 110. with activity did increase to 125. Pulse ox was normal. Patient denies any chest pains. Again, he did have a CTA while at [place]. He did state that he had 2 large coffee before the visit. Will go ahead and request blood work in addition to an EKG at this time. He is going to avoid caffeine aorta in or stimulants as much as possible in meantime. We did talk about decreasing the prednisone. I am concerned with a history of diabetes in the family and his body habitus that he could potentially develop prednisone induced diabetes. Therefore will go ahead and check his sugar and also start tapering down the prednisone. He may indeed need an alternatives steroid sparing agent such as methotrexate. Will go ahead and request blood work including an Mauricio level to see if we can measure sarcoid activity. In the meantime while we slowly taper the prednisone down to 30 mg he will be monitoring closely for any recurrent symptoms. Will have to request additional data from his [facility] since we have limited data at this time. [facility] Medical History (Updated 05/02/24 @ 23:25 by Alfred Ramos MD) Tachycardia Sarcoidosis Rectal bleeding Chronic low back pain Social History (Updated 05/02/24 @ 15:20 by PASQUALE Portillo) Alcohol intake: never Patient Tobacco Use Status: Never used Tobacco Review of Systems Const Reports daytime sleepiness, Denies fever(s) and Reports weight loss Eyes Reports change in vision ENT Reports dysphagia Card Reports palpitations and Reports dyspnea on exertion Resp Reports dyspnea on exertion and Denies wheezing GI Reports dysphagia Musc Reports no additional complaints Skin/Breast Denies rash Neuro Reports as per HPI and Reports focal weakness Endo Reports palpitations Doug/Lymph Denies lymphadenopathy Aller/Immun Denies wheezing Physical Exam Vital Signs: Last Vital Signs Pulse 89 05/02/24 15:16 Pulse Ox 97 05/02/24 15:16 Oxygen Delivery Method Room Air 05/02/24 15:16 BMI result Body Mass Index 39.4 Const General: comfortable HEENT Head: Yes normocephalic Neck Neck: Yes supple Chest Chest palpation & inspection: normal inspection of the chest Cardio Rate: tachycardic Rhythm: regular rhythm Heart sounds: S1 normal heart sound present and S2 normal heart sound present GI Palpation (GI): Soft to palpation Skin General skin exam: no rashes or lesions noted Neuro General: other (vasques'palsy) Extrem General: Yes no clubbing, cyanosis or edema Assessment & Plan Assessment & Plan (1) Sarcoidosis: Code(s): D86.9 - Sarcoidosis, unspecified Category: Medical (2) Tachycardia: Code(s): R00.0 - Tachycardia, unspecified Category: Medical (3) Lymphadenopathy of head and neck: Code(s): R59.1 - Generalized enlarged lymph nodes Category: Medical (4) BAYLEE (obstructive sleep apnea): Code(s): G47.33 - Obstructive sleep apnea (adult) (pediatric) Category: Medical (5) Asthma: Code(s): J45.909 - Unspecified asthma, uncomplicated Category: Medical Qualifiers: Asthma severity: mild Asthma persistence: intermittent Asthma complication type: uncomplicated Qualified Code(s): J45.20 - Mild intermittent asthma, uncomplicated (6) Dysphagia: Code(s): R13.10 - Dysphagia, unspecified Category: Medical Qualifiers: Dysphagia type: unspecified Qualified Code(s): R13.10 - Dysphagia, unspecified Plan Taper Prednisone 60mg, decrease by 10mg every 2 weeks till 30mg daily consider Bactrim if the dose continues to stay above 20mg consider MTX if he does not tolerate cutting down the prednisone Bloodwork EKG ECHO consider repeating PSG F/U 3-4 weeks Orders: Orders Angiotensin Converting Enzyme Today D86.9 - Sarcoidosis, unspecified Liver Panel Today D86.9 - Sarcoidosis, unspecified Erythrocyte Sedimentation Rate Today D86.9 - Sarcoidosis, unspecified ECG 12 lead EKG Today R00.0 - Tachycardia, unspecified CA echo transthoracic complete Today I27.20 - Pulmonary hypertension, unspecified B Type Natriuretic Peptide Today R00.0 - Tachycardia, unspecified Troponin-I High Sensitivity Today R00.0 - Tachycardia, unspecified Cyclic Citrullinated Peptide Today R00.0 - Tachycardia, unspecified Complete Blood Count Auto Diff Today D86.9 - Sarcoidosis, unspecified Basic Metabolic Panel Today D86.9 - Sarcoidosis, unspecified Venous Blood Gas Today R00.0 - Tachycardia, unspecified CARLOS EDUARDO Reflex Titer and Pattern Today R00.0 - Tachycardia, unspecified D Dimer High Sensitivity Today R00.0 - Tachycardia, unspecified Coding Level of Care Code New Pt Level 5 (16033) Diagnoses Sarcoidosis D86.9 Tachycardia R00.0 Lymphadenopathy of head and neck R59.1 BAYLEE (obstructive sleep apnea) G47.33 Mild intermittent asthma without complication J45.20 Asthma severity: mild Asthma persistence: intermittent Asthma complication type: uncomplicated Dysphagia, unspecified type R13.10 Dysphagia type: unspecified Time Spent (min) 60
== END 2024-05-02 15:48 | disposition home or self-care (01) ==
PROVIDERS: PCP Nurse Practitioner Family; Referring Provider Nurse Practitioner Family; Visit Provider Hospitalist
DX: D86.9 Sarcoidosis, unspecified (principal); R00.0 Tachycardia, unspecified; R59.1 Generalized enlarged lymph nodes; G47.33 Obstructive sleep apnea (adult) (pediatric); J45.20 Mild intermittent asthma, uncomplicated; R13.10 Dysphagia, unspecified
CPT/HCPCS: 99205; G2212

== ENCOUNTER → 2024-05-02 15:08 | Outpatient (BNVA) | payer MEDICARE, MEDICAID, SELFPAY | PROVIDERS: PCP Nurse Practitioner Family; Referring Provider Nurse Practitioner Family; Visit Provider Hospitalist | DX: D86.9 Sarcoidosis, unspecified (principal); R00.0 Tachycardia, unspecified; R59.1 Generalized enlarged lymph nodes; J45.20 Mild intermittent asthma, uncomplicated; G47.33 Obstructive sleep apnea (adult) (pediatric); R13.10 Dysphagia, unspecified | CPT/HCPCS: 99202 ==

== ENCOUNTER → 2024-06-08 12:03 | Outpatient (REF) | payer MEDICAID, SELFPAY ==
--- NOTE | 2024-06-08 12:18 | ECG_ITS ---
Test Reason : TACHY Blood Pressure : / mmHG Vent. Rate : 083 BPM Atrial Rate : 083 BPM P-R Int : 114 ms QRS Dur : 086 ms QT Int : 346 ms P-R-T Axes : 037 066 020 degrees QTc Int : 406 ms Normal sinus rhythm Normal ECG When compared with ECG of 14-MAR-2018 17:29, No significant change was found Referred By: Alfred Ramos Electronically Signed By:HUMBERTO GILLILAND
[2024-06-08 12:44] LABS: MANUAL DIFF FLAG NO
[2024-06-08 12:52] LABS: VBG HCO3 30 mmol/L (22-26); VBG pCO2 46 mmHg; VBG pH 7.42 (7.32-7.43); VBG pO2 61 mmHg
[2024-06-08 12:54] LABS: Venous Blood Gas Refer to POC result
[2024-06-08 13:15] LABS: D Dimer High Sensitivity 515 NG/ML
[2024-06-08 14:01] LABS: Basophils Absolute Auto 0.1 X10*3/uL (0.0-0.2); Basophils Percent Auto 0.4 % (0-2); Eosinophils Percent Auto 0.2 % (0-4); Hematocrit 41.3 % (42.0-52.0); Hemoglobin 13.8 g/dl (14.0-18.0); Imm Gran Abs Auto 0.15 X10*3/uL (0.00-0.03); Imm Gran Pct Auto 0.9 % (0.0-0.4); Lymphocytes Absolute Auto 1.6 X10*3/uL (1.2-4.9); Lymphocytes Percent Auto 9.6 % (20-40); Mean Corpuscular HGB Conc 33.4 g/dl (31.0-36.0); Mean Corpuscular Hemoglobin 26.4 pg (27.0-33.0); Mean Corpuscular Volume 79.1 fL (80.0-98.0); Mean Platelet Volume 9.1 fL (9.4-12.4); Monocytes Absolute Auto 0.7 X10*3/uL (0.1-1.2); Monocytes Percent Auto 4.5 % (2-11); Neutrophils Percent Auto 84.4 % (45-73); Platelet Count 308 X10*3/uL (160-400); Red Blood Count 5.22 X10*6/uL (4.60-5.80); Red Cell Distribution Width 13.9 % (11.0-16.0); White Blood Count 16.6 X10*3/uL (4.8-10.8)
[2024-06-08 14:16] LABS: Estimated Average Glucose 123 mg/dL; Hemoglobin A1c % 5.9 % (<6.0); Total Hemoglobin (HGBA1C) 3470.1805 umol/L
[2024-06-08 14:29] LABS: B Type Natriuretic Peptide 18 pg/mL (<100)
[2024-06-08 14:41] LABS: Troponin-I High Sensitivity < 2.7 ng/L (<3.5-35.0)
[2024-06-08 14:44] LABS: Alanine Aminotransferase 33 U/L (0-40); Albumin Level 4.1 g/dL (3.5-5.0); Alkaline Phosphatase 70 U/L (39-117); Anion Gap 13 (12-20); Aspartate Amino Transferase 23 U/L (5-37); Bilirubin Direct 0.2 mg/dL (0.0-0.5); Bilirubin Total 0.6 mg/dL (0.0-1.0); Blood Urea Nitrogen 10 mg/dL (9-16); Calcium 9.8 mg/dL (8.4-10.2); Carbon Dioxide 27 mmol/L (22-29); Chloride 104 mmol/L (96-108); Cholesterol 168 mg/dL (<200); Estimated Glomerular Filt Rate > 60; Glucose Random 108 mg/dL (60-115); HDL Cholesterol 52 mg/dL (>40); LDL Cholesterol Calculated 101 mg/dL (<100); Potassium 3.7 mmol/L (3.3-5.1); Sodium 140 mmol/L (135-145); Total Protein 7.5 g/dL (6.5-8.0); Triglycerides 79 mg/dL (<150)
[2024-06-08 14:48] LABS: Erythrocyte Sedimentation Rate 23 MM/HR (0-15)
[2024-06-12 11:24] LABS: Anti Nuclear Antibody Screen NEGATIVE (NEGATIVE)
[2024-06-12 15:18] LABS: Cyclic Citrullinated Peptide <16 UNITS
[2024-06-13 02:13] LABS: Angiotensin Converting Enzyme 65.5 U/L (9-67)
== END ==
LOC: HO.CARD 12:03
PROVIDERS: PCP Nurse Practitioner Family; Visit Provider Hospitalist
DX: R00.0 Tachycardia, unspecified (principal); D86.9 Sarcoidosis, unspecified; Z00.00 Encounter for general adult medical examination without abnormal findings
CPT/HCPCS: 36415; 80053; 80061; 80076; 82164; 82803; 83036; 83880; 84484; 85025; 85379; 85652; 86038; 86200; 93005

== ENCOUNTER → 2024-06-14 11:05 | Outpatient (REF) | payer MEDICARE, MEDICAID, SELFPAY ==
--- NOTE | 2024-06-14 11:08 | CA_ITS ---
Transthoracic Echocardiogram Patient (Last, First, Middle): Cate Souza, Gender: Male Date of : 1985 Age: 38 Procedure Date: 06/14/2024 Procedure Type: Transthoracic Echocardiogram Location: OP Height: 162.56 cm Weight: 112.04 kg BSA: 2.14 m2 Heart Rate: bpm BP: 116 / 76 mmHg Sterilization Tech: ANITA Referring MD: Alfred Ramos MD Bullet Slug Casting Machine Operator: Joseph Singh MD Symptoms: I27.20 - Pulmonary hypertension, unspecified Study Quality: Fair ECG Rhythm: Sinus Conclusions: - 1. Normal LV ejection fraction 55-60% 2. Normal cardiac valvular Dopplers 3. Normal RV systolic pressure Findings Left Ventricle Normal left ventricular size, thickness, and systolic function. The visually estimated ejection fraction is between 55-60%. Regional wall motion abnormalities can not be excluded due to suboptimal endocardial definition. Spectral Doppler is indicative of a normal filling pattern. Right Ventricle Normal right ventricular cavity size. There is normal right ventricular systolic function. Atria The left atrium is normal in size. Interatrial shunt cannot be excluded. The right atrium was not well visualized. Aortic Valve The aortic valve structure and function is likely normal. There is no aortic valve stenosis. There is no aortic valve regurgitation. Mitral Valve Likely normal mitral valve structure and function. There is trace mitral valve regurgitation. There is no mitral valve stenosis. Pulmonic Valve The pulmonic valve was not well visualized. Tricuspid Valve Likely normal tricuspid valve structure and function. There is trace tricuspid valve regurgitation. The right ventricular systolic pressure is normal. The right ventricular systolic pressure is 24 mmHg. Normal right atrial pressure. There is no evidence of pulmonary hypertension. Great Vessels The aorta was not well visualized. The pulmonary artery was not well visualized. There is no dilatation of the ascending aorta measuring 2.60 cm. Venous The inferior vena cava is mildly dilated and collapses greater than 50% with inspiration. Pericardium/Pleural The pericardium was not well visualized. Prior Study Comparison No prior study available for comparison. Measurements 2D Linear Measurements IVSd: 1.00 0.6-0.9/0.6-1.0 cm LVIDd: 4.87 3.9-5.3/4.2-5.9 cm LVIDd Index: 2.28 2.4-3.2/2.2-3.1 cm/m2 LVIDs: 3.58 2.0-3.6 cm LVPWd: 1.00 0.7-1.1 cm LA Diam: 3.40 2.7-3.8/3.0-4.0 cm LAIDs Index: 1.59 1.5-2.3 cm/m2 LV Mass: 217.09 67-162/88-224 g LV Mass Index: 101.44 43-95/49-115 g/m2 LVOT Diam: 2.10 3.0+(-)1.3 cm 2D Systolic Function EF 4C: 50.00 >55% EF 2C: 58.50 >55% EF BiP: 55.20 >55% Mitral Valve MV Pk E: 0.64 MV PK A: 0.45 MV Decel Time: 178.00 E/A: 1.40 E'Lateral: 8.70 E'Medial: 9.14 E/E' Med: 7.00 E/E' Lat: 7.30 PHT: 52.00 MVA PHT: 4.23 Decel [place]: 3.58 Aortic Valve AoV Pk Moo: 1.16 AoV Mn Moo: 0.89 AoV VTI: 0.22 AoV Pk Grad: 5.00 Aov Mn Grad: 3.00 CARL Cont.VTI: 2.36 LVOT LVOT Pk Moo: 0.86 LVOT Mn Moo: 0.55 LVOT VTI: 0.15 LVOT Pk Grad: 3.00 LVOT Mn Grad: 1.00 LVOT Diam: 2.10 LVOT Area: 3.46 Diastolic Function MV Pk E: 0.64 MV Pk A: 0.45 E/A: 1.40 E'Medial: 9.14 E/E' Med: 7.00 E' Laterial: 8.70 E/E' Lat: 7.30 Right Ventricle TAPSE (mm): 21.70 TVS' Moo: 13.30 Tricuspid Valve TR Pk Moo: 2.31 TR Pk Grad: 21.00 RA Press: 3.00 RVSP: 24.00 Great Vessels Aorta Sinus of Valsalva: 2.85 2.0-3.[address] [place]: 2.11 1.7-3.4 cm Ao Asc: 2.60 2.1-3.4 cm Updated in Other Vendor System with Status of Final Joseph Singh MD electronically signed on 06/15/2024 12:14:11 PM with status of Final
== END ==
LOC: HO.CARD 11:05
PROVIDERS: PCP Nurse Practitioner Family; Visit Provider Hospitalist
DX: I27.20 Pulmonary hypertension, unspecified (principal)
CPT/HCPCS: 93306

== ENCOUNTER → 2024-06-14 11:08 | Outpatient (BNV) | payer MEDICARE, MEDICAID, SELFPAY | PROVIDERS: PCP Nurse Practitioner Family; Visit Provider Internal Medicine Cardiovascular Disease | DX: I27.20 Pulmonary hypertension, unspecified (principal) | CPT/HCPCS: 93306 ==

== ENCOUNTER 2025-04-25 14:58 | Outpatient (REF) | payer MEDICARE, MEDICAID, SELFPAY ==
--- NOTE | ~2025-04-25 | XR_ITS ---
EXAMINATION: Chest 2 views. Thoracic spine 3 views. 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 Chronic mid back pain. COMPARISON: Chest x-ray 12/10/2022. FINDINGS: CHEST 2 VIEWS: The lungs are expanded and clear of acute consolidation. No prominent interstitial markings, mediastinal lymph nodes or calcification seen. There is no pleural effusion. Heart size and pulmonary vascularity is normal. No gross bony abnormality seen. DORSAL SPINE 3 VIEWS: There is normal thoracic kyphosis. The vertebral heights, alignment and disc heights are normal. There is no visible acute fracture, dislocation or subluxation seen. No aggressive lytic or sclerotic process seen. The paravertebral soft tissues are normal. XR/XR thoracic spine 3V IMPRESSION: Unremarkable chest exam. Unremarkable dorsal spine exam. Electronically signed by: Quintin Pabon MD 04/25/2025 04:07 PM EDT
--- NOTE | ~2025-04-25 | XR_ITS ---
EXAMINATION: Chest 2 views. Thoracic spine 3 views. 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 Chronic mid back pain. COMPARISON: Chest x-ray 12/10/2022. FINDINGS: CHEST 2 VIEWS: The lungs are expanded and clear of acute consolidation. No prominent interstitial markings, mediastinal lymph nodes or calcification seen. There is no pleural effusion. Heart size and pulmonary vascularity is normal. No gross bony abnormality seen. DORSAL SPINE 3 VIEWS: There is normal thoracic kyphosis. The vertebral heights, alignment and disc heights are normal. There is no visible acute fracture, dislocation or subluxation seen. No aggressive lytic or sclerotic process seen. The paravertebral soft tissues are normal. XR/XR chest 2V IMPRESSION: Unremarkable chest exam. Unremarkable dorsal spine exam. Electronically signed by: Quintin Pabon MD 04/25/2025 04:07 PM EDT
--- OUTSIDE RECORDS SUMMARY | 2025-04-25 15:04 | XMS_ITS | Patient Health Record ---
Author Organization [facility] Address [address] [place] [id number] Care Team Providers Care Electrical And Instrument Technician Name Role Phone Harman Al Unavailable [phone] Reason For Referral No Information Plan Of Treatment No Information
--- OUTSIDE RECORDS SUMMARY | 2025-04-25 15:04 | XMS_ITS | Encounter Summary ---
Author Organization [employer] Address [address] [place] [address] [address] [place] [address] Care Team Providers Care Brazer Crawler Torch Name Role Phone Clari Joshi NP Primary Care Provider [phone] Reason for Visit * Reason Onset Date Comments Medication Question 02/28/2024 Encounter Details Date Type Department Care Team ([facility] st Contact Info) Description 02/28/2024 Telephone [facility] [address] [place] [address] Clari Joshi NP [address] [place] [address] Medication Question Social History Tobacco Use Types Packs/Day Years Used Date Smoking Tobacco: Never Passive Smoke Exposure: Never Smokeless Tobacco: Never Alcohol Use Standard Drinks/Week Comments Never 0 (1 standard drink = 0.6 oz pur e alcohol) Depression Answer Date Recorded Patient Health Questionnaire-9 Score 0 02/21/2024 Patient Health Questionnaire-9 Score 0 02/21/2024 Last PHQ-9: Questionnaire Data Not on file 0 02/21/2024 Housing Stability Answer Date Recorded What is your housing situation today? I have milton pastor 02/21/[address] you li ve. Do you have problems with any of the following? None of the above 02/21/2024 Food Insecurity Answer Date Recorded Within the past 12 months, y ou worried that your food would run out before you got money to buy more: Never True 02/21/2024 Within the past 12 months,th e food you bought just didn't last and you didn't have enough money to get more: Never True 06/2024 Transportation Answer Date Recorded In the past 12 months, has l ack of transportation kept you from medical appts, meetings, work or from getting things needed for daily living? No 02/21/2024 Utilities Answer Date Recorded In the past 12 months, has t he electric, gas, oil or water company threatened to shut off services in your home? No 02/21/2024 Depression Answer Date Recorded Patient Health Questionnaire-2 Score 0 02/21/2024 Sex and Gender Information Value Date Recorded Sex Assigned at Male 07/13/2022 10:15 AM EDT Legal Sex Male 10:15 AM EDT Gender Identity Male 07/13/2022 10:15 AM EDT Sexual Orientation Straight 04/25/2025 11 :27 AM EDT documented as of this encounter Miscellaneous Notes * Telephone Encounter - Gabrielle Helms - 02/29/2024 10:33 AM EDT Tc from pt requesting status on Phone call. * Telephone Encounter - Misha Wagoner - 02/28/2024 9:33 AM EDT Tc from patient calling to request a alternative medication for the Tramadol states has no effect for the pain in the back however resume writer does not see this medication on patient chart documented in this encounter Plan of Treatment Upcoming Encounters Date Type Department Care Team (Late st Contact Info) Description 05/07/2025 9:00 AM EDT Office Visit [facility] [address] [place] [address] Clari Joshi NP [address] [place] [address] documented as of this encounter Visit Diagnoses Not on filedocumented in this encounter Additional Health Concerns Assessment Noted Time PHQ-9 Depression Total Score: 0 02/21/20 24 10:18 AM EDT documented as of this encounter Care Teams Brazer Crawler Torch Relationship Specialty Start Date End Date Clari Joshi NP [address] [place] [phone] PCP - General Family Medicine 11/24/23 documented as of this encounter
--- OUTSIDE RECORDS SUMMARY | 2025-04-25 15:04 | XMS_ITS ---
Author Name [facility] Organization Unknown Results Test Name/Text Value Interpretation Date Range Source Potassium SerPl-sCnc 4.2 mmol/L Normal 02/24/2024 3.4 - 5 .3 HHCCT Creat SerPl-mCnc 0.8 mg/dL Normal 02/24/2024 0.5 - 1.3 HH CCT BUN/Creat SerPl 14.0 Ratio Normal 02/24/2024 10 - 25 HH CCT Sodium SerPl-sCnc 137.0 mmol/L Normal 02/24/2024 136 - 14 5 HHCCT Chloride SerPl-sCnc 102.0 mmol/L Normal 02/24/2024 98 - 1 07 HHCCT BUN SerPl-mCnc 11.0 mg/dL Normal 02/24/2024 8 - [address] GFR/BSA.pred SerPlBld [id number] >90.0 Normal 02/24/2024 59 - HHCCT CO2 SerPl-sCnc 24.0 mmol/L Normal 02/24/2024 22 - 33 HH CCT Glucose SerPl-mCnc 123.0 mg/dL Above high normal 02/24/2024 65 - 99 HHCCT Calcium SerPl-mCnc 10.0 mg/dL Normal 02/24/2024 8.7 - 10. 5 H[facility]CT Anion Gap Bld-sCnc 11.0 Normal 02/24/2024 7 - 17 HHCCT Magnesium SerPl-mCnc 2.1 mg/dL Normal 02/24/2024 1.6 - 2. 7 HHCCT Eosinophil num Bld Auto 0.0 Thou/uL Normal 02/24/2024 0 - 0.7 HHCCT RDW RBC Auto-Rto 13.1 % Normal 02/24/2024 11.5 - 14.5 HHCCT MCHC RBC Auto-mCnc 33.9 g/dL Normal 02/24/2024 30 - 36 HHCCT Neutrophils/leuk NFr Bld Auto 77.3 % Normal 02/24/2024 H[facility]CT RBC num Bld Auto 4.96 Mil/uL Normal 02/24/2024 4.5 - 6.2 HHCCT Hct VFr Bld Auto 38.4 % Below low normal 02/24/2024 39 - 54 HHCCT Imm Granulocytes num Bld Auto 0.05 Thou/uL Normal 02/24/2024 0 - 0.1 HHCCT Lymphocytes num Bld Auto 1.32 Thou/uL Below low normal 02/24/2024 1.5 - 4.5 HHCCT MCH RBC Qn Auto 26.2 pg Normal 02/24/2024 26 - [address] Platelet num Bld Auto 311.0 Thou/uL Normal 02/24/2024 150 - 450 HHCCT Hgb Bld-mCnc 13.0 g/dL Normal 02/24/2024 13 - 17.7 HHCCT Eosinophil/leuk NFr Bld Auto 0.0 % Normal 02/24/2024 HHCCT Neutrophils num Bld Auto 8.75 Thou/uL Above high normal 02/24/2024 2 - 7.5 HHCCT Monocytes/leuk NFr Bld Auto 10.5 % Normal 02/24/2024 HHCCT WBC num Bld Auto 11.3 Thou/uL Above high normal 02/24/2024 4 - 11 HHCCT Basophils num Bld Auto 0.01 Thou/uL Normal 02/24/2024 0 - 0.2 HHCCT Lymphocytes/leuk NFr Bld Auto 11.7 % Normal 02/24/2024 HHCCT Imm Granulocytes/leuk NFr Bld Auto 0.4 % Normal 02/24/2024 HHCCT Monocytes num Bld Auto 1.19 Thou/uL Normal 02/24/2024 0.2 - 1.5 HHCCT MCV RBC Auto 77.0 fL Below low normal 02/24/2024 80 - 100 HHCCT PMV Bld Auto 9.5 fL Normal 02/24/2024 7.5 - 12.5 HHCCT Basophils/leuk NFr Bld Auto 0.1 % Normal 02/24/2024 HHCCT FLOR SerPl-cCnc 183.3 U/L Above high normal 02/28/2024 9 - 67 HHCCT 1,25(OH)2D2 SerPl-mCnc <8.0 pg/mL Normal 02/26/2024 HHCCT 1,25(OH)2D3 SerPl-mCnc 45.0 pg/mL Normal 02/26/2024 HHCCT 25(OH)D2+25(OH)D3 SerPl-mCnc 45.0 pg/mL Normal 02/26/2024 18 - 72 HHCCT Magnesium SerPl-mCnc 1.9 mg/dL Normal 02/23/2024 1.6 - 2. 7 HHCCT Creat SerPl-mCnc 0.8 mg/dL Normal 02/23/2024 0.5 - 1.3 HH CCT BUN/Creat SerPl 10.0 Ratio Normal 02/23/2024 10 - 25 HH CCT Glucose SerPl-mCnc 89.0 mg/dL Normal 02/23/2024 65 - 99 HHCCT Albumin/Glob SerPl 1.0 Ratio Normal 02/23/2024 1 - 3 HHCCT Prot SerPl-mCnc 7.5 g/dL Normal 02/23/2024 6.3 - 8.[address] Chloride SerPl-sCnc 102.0 mmol/L Normal 02/23/2024 98 - 1 07 HHCCT Albumin SerPl-mCnc 3.7 g/dL Normal 02/23/2024 3.5 - 5 HHCCT BUN SerPl-mCnc 8.0 mg/dL Normal 02/23/2024 8 - 21 HHCC T GFR/BSA.pred SerPlBld [id number] >90.0 Normal 02/23/2024 59 - HHCCT Anion Gap Bld-sCnc 14.0 Normal 02/23/2024 7 - 17 HHCCT ALP SerPl-cCnc 85.0 U/L Normal 02/23/2024 45 - 128 HHCC T Potassium SerPl-sCnc 4.1 mmol/L Normal 02/23/2024 3.4 - 5 .3 HHCCT AST SerPl-cCnc 56.0 U/L Above high normal 02/23/2024 10 - 5 5 HHCCT ALT SerPl-cCnc 49.0 U/L Normal 02/23/2024 10 - 55 HHCC T CO2 SerPl-sCnc 21.0 mmol/L Below low normal 02/23/2024 22 - 33 HHCCT Sodium SerPl-sCnc 137.0 mmol/L Normal 02/23/2024 136 - 14 5 HHCCT Calcium SerPl-mCnc 10.0 mg/dL Normal 02/23/2024 8.7 - 10. 5 HHCCT Globulin Ser Calc-mCnc 3.8 g/dL Normal 02/23/2024 1.5 - 3.9 HHCCT Bilirub SerPl-mCnc 0.8 mg/dL Normal 02/23/2024 0.2 - 1 HHCCT Hgb Bld-mCnc 13.6 g/dL Normal 02/23/2024 13 - 17.7 HHCCT Lymphocytes/leuk NFr Bld Auto 20.7 % Normal 02/23/2024 HHCCT WBC num Bld Auto 8.5 Thou/uL Normal 02/23/2024 4 - 11 HHCCT Lymphocytes num Bld Auto 1.76 Thou/uL Normal 02/23/2024 1.5 - 4.5 HHCCT RDW RBC Auto-Rto 13.2 % Normal 02/23/2024 11.5 - 14.5 HHCCT Imm Granulocytes/leuk NFr Bld Auto 0.4 % Normal 02/23/2024 HHCCT MCH RBC Qn Auto 25.8 pg Below low normal 02/23/2024 26 - 3 4 HHCCT Monocytes/leuk NFr Bld Auto 12.7 % Normal 02/23/2024 HHCCT MCV RBC Auto 79.0 fL Below low normal 02/23/2024 80 - 100 HHCCT Basophils/leuk NFr Bld Auto 0.9 % Normal 02/23/2024 HHCCT MCHC RBC Auto-mCnc 32.8 g/dL Normal 02/23/2024 30 - 36 HHCCT Eosinophil num Bld Auto 0.28 Thou/uL Normal 02/23/2024 0 - 0.7 HHCCT PMV Bld Auto 10.0 fL Normal 02/23/2024 7.5 - 12.5 HHCCT RBC num Bld Auto 5.27 Mil/uL Normal 02/23/2024 4.5 - 6.2 HHCCT Hct VFr Bld Auto 41.5 % Normal 02/23/2024 39 - 54 HH CCT Eosinophil/leuk NFr Bld Auto 3.3 % Normal 02/23/2024 HHCCT Neutrophils num Bld Auto 5.29 Thou/uL Normal 02/23/2024 2 - 7.5 HHCCT Neutrophils/leuk NFr Bld Auto 62.0 % Normal 02/23/2024 HHCCT Monocytes num Bld Auto 1.08 Thou/uL Normal 02/23/2024 0.2 - 1.5 HHCCT Platelet num Bld Auto 306.0 Thou/uL Normal 02/23/2024 150 - 450 HHCCT Imm Granulocytes num Bld Auto 0.03 Thou/uL Normal 02/23/2024 0 - 0.1 HHCCT Basophils num Bld Auto 0.08 Thou/uL Normal 02/23/2024 0 - 0.2 HHCCT EBV DNA XXX Ql PCR Not Detected Normal 02/25/2024 - [facility] Specimen source XXX Whole Blood Normal 02/25/2024 CCT Specimen Source Whole Blood Normal 02/25/2024 H HCCT EBV DNA Num XXX PCR Not Detected Normal 02/25/2024 CCT EBV DNA QUANT PCR Not Detected Normal 02/25/2024 [facility] CMV PCR (log10) Not Detected Normal 02/25/2024 - 1.72 HHCCT Interpretation Not Detected Normal 02/25/2024 H HCCT CMV PCR (IU/mL) Not Detected Normal 02/25/2024 - 53 [facility] CMV IgG SerPl EIA-aCnc >8.0 AI Above high normal 02/25/2024 - 0.9 [facility] HBV core Ab Ser Ql Nonreactive Normal 02/23/2024 - [facility] Hepatitis C Ab Interpretation Nonreactive Normal 02/23/2024 - [facility] HCV Ab s/co SerPl EIA 0.17 S/CO ratio Normal 02/23/2024 0 - 0.79 [facility] HBV surface Ag Ser Ql Nonreactive Normal 02/23/2024 - [facility] HIV 1+2 Ab+HIV1 p24 Ag Ser EIA-aCnc Nonreactive Normal 02/23/2024 - [facility] Alpha-Fetoprotein (Tumor Marker) 1.1 ng/mL Normal 02/27/2024 - 6.1 [facility] Flow Cytometry - Lym/Leuk See separate Pathology report. Normal 02/23/2024 [facility] Diagnosis Blood Normal 02/22/2024 [facility] B-HCG SerPl-aCnc <2.0 mIU/mL Normal 02/22/2024 - 2 [facility] History of Medication Use Medication Directions Dispensed Refills Start Date End Date Stat us lansoprazole (PREVACID SOLUTAB) 30 MG disintegrating tablet Take 1 tablet (30 mg total) by mouth daily. 02/25/2024 03/27/2024 active polyethylene glycol (miraLAx) 17 g packet Take 1 packet (17 g total) by mouth daily. 02/25/2024 03/27/2024 active albuterol (PROVENTIL HFA; VENTOLIN HFA) 108 (90 Base) MCG/ACT inhaler Inhale 2 puffs 4 times daily (every 6 hours) as needed for wheezing. active Problems Problem Status Onset Date Problem Type Date of Resoluti on Source Dysphagia active 2024-02-22 ProblemAct [facility] Lymphadenopathy active 2024-02-21 ProblemAct [facility] Encounters Encounter Type Encounter Reason Primary Diagnosis Location Date Inpatient Generalized enlarged lymph nodes Generalized enlarged lymph nodes Travel Notes 02/21/2024 Care Team Organization Name Specialty Phone Email Start Date End Da te Travel Notes MARIANA GUERRERO Primary Care 02/23/2024 Travel Notes 02/22/2024 11/29/2024 Travel Notes [facility] Primary Care 02/22/2024 Travel Notes 02/22/2024
--- OUTSIDE RECORDS SUMMARY | 2025-04-25 15:04 | XMS_ITS | Clinical Summary ---
Author Organization [facility] Address [address] [place] [id number] Care Team Providers Care Engineering Laboratory Technician Name Role Phone Clari Joshi APRN Primary Care Provider [phone] Allergies No known active allergies Medications albuterol (PROVENTIL HFA; VENTOLIN HFA) 108 (90 Base) MCG/ACT inhaler Inhale 2 puffs 4 times daily (every 6 hours) as needed for wheezing. Active lansoprazole (PREVACID SOLUTAB) 30 MG disintegrating tabletIndications:S arcoidosis Take 1 tablet (30 mg total) by mouth daily. 30 tablet 4 Active metoPROLOL TARTRATE (LOPRESSOR) 25 MG tabletIndications:S arcoidosis Take 1 tablet (25 mg total) by mouth every 12 (twelve) hours around the clock. 60 tablet 4 Active multivitamin with minerals (CEROVITE) Liquid liquidIndications:S arcoidosis Take 15 mL by mouth daily. 450 mL 4 Active polyethylene glycol (miraLAx) 17 g packetIndications:S arcoidosis Take 1 packet (17 g total) by mouth daily. 30 packet 4 Active predniSONE (DELTASONE) 10 MG tabletIndications:S arcoidosis Take 6 tablets (60 mg total) by mouth daily. With food. 180 tablet 4 Active traMADol (ULTRAM) 50 MG tabletIndications:S arcoidosis Take 1 tablet (50 mg total) by mouth 3 times daily (every 8 hours) as needed for severe pain. 30 tablet 4 Active Active Problems Problem Noted Date Diagnosed Date Dysphagia 02/22/2024 Lymphadenopathy 02/21/2024 Social History Tobacco Use Types Packs/Day Years Used Date Smoking Tobacco: Never Smokeless Tobacco: Never Tobacco Cessation:Counseling Given: Not Answered [facility] Utilities Answer Date Recorded In the past 12 months has th e electric, gas, oil, or water company threatened to shut off services in your home? No 02/23/2024 AUDIT-C Answer Date Recorded Q1: How often do you have a drink containing alcohol? Never 02/22/2024 Q2: How many drinks containi ng alcohol do you have on a typical day when you are drinking? Patient does not drink Q3: How often do you have si x or more drinks on one occasion? Never 02/22/2024 Hunger Vital Sign Answer Date Recorded Within the past 12 months, y ou worried that your food would run out before you got the money to buy more. Never true 02/23/20 24 Within the past 12 months, t he food you bought just didn't last and you didn't have money to get more. Never true 02/23/2024 PRAPARE - Transportation Answer Date Re corded In the past 12 months, has l ack of transportation kept you from medical appointments or from getting medications? No 02/11 In the past 12 months, has l ack of transportation kept you from meetings, work, or from getting things needed for daily living? No 02/23/2024 Housing Stability Vital Sign Answer Miguel e Recorded In the last 12 months, was t here a time when you were not able to pay the mortgage or rent on time? No 02/23/2024 In the last 12 months, how many places have you lived? 1 02/23/2024 In the last 12 months, was t here a time when you did not have a steady place to sleep or slept in a [facility] (including now)? No 02/23/2024 Sex and Gender Information Value Date Recorded Sex Assigned at Male 02/21/2024 11:43 PM EDT Legal Sex Male 6:00 PM EDT Gender Identity Male 02/21/2024 11:43 PM EDT Sexual Orientation Heterosexual (straight) 02/20 11:43 PM EDT Last Filed Vital Signs Vital Sign Reading Time Taken Comments Blood Pressure 125/86 02/24/2024 2:30 PM EDT Pulse 113 02/24/2024 2:30 PM EDT Temperature 35.6 C (96.1 F) 02/24/2024 2:30 PM EDT Respiratory Rate 18 02/24/2024 5:42 AM EDT Oxygen Saturation 96% 02/24/2024 2:30 PM EDT Inhaled Oxygen Concentration - - Weight 103 kg (226 lb 12.8 oz) 02/22/2024 7:57 P M EDT Height 167.6 cm (5' 6 ) 02/22/2024 7:57 PM EDT Body Mass Index 36.61 02/22/2024 7:57 PM EDT Plan of Treatment Health Maintenance Due Date Last Done Comments DTaP/Tdap/Td Vaccines (1 - Tdap) 2004 Hepatitis B Vaccines (1 of 3 - 19+ 3-dose series) 2004 COVID-19 Vaccine (2023-2 5 season) 2024 Influenza Vaccine 04/13/2025 07/21/2019, 10/11/2014 HIV Screening Completed 02/22/2024 Hepatitis C Virus Screening Completed 02/22/2024 HPV Vaccines Aged Out No longer eligi ble based on patient's age to complete this topic Pneumococcal Vaccine: Pediatric (0-5 Years) and At-Risk Patients (6 to 49 Years) Aged Out No longer eligible b ased on patient's age to complete this topic Procedures Procedure Name Priority Date/Time Associated Diagnosis Comments HIV 1/2 AG/AB CMIA REFLEX TO CONFIRMATION STAT 02/22/2024 11:51 AM EDT HEPATITIS C ANTIBODY REFLEX HCV RT-PCR, QUANT STAT 02/22/2024 11:51 AM EDT from Last 3 Months or Most Recently Relevant to Health Maintenance Results * Hepatitis C Antibody reflex HCV RT-PCR, Quant (02/22/2024 11:51 AM EDT) Hepatitis C Antibody 0.17 0.00 - 0.79 S/CO ratio 02/23/2024 10:50 AM EDT [facility] Hepatitis C Antibody Interpretation Nonreactive Nonreactive 02/23/2024 10:50 AM EDT [facility] Comment:Antibodies to HCV no t detected. This does not exclude the possibility of exposure to HCV. Blood (Plasma/Serum) 02/22/2024 11:51 AM EDT 02/22/2024 12:33 PM EDT Misty Rodgers APRN LAB BLOOD ORDERABLES Ju l Result Performing Organization Address [facility] Co de Phone Number [facility] [phone] * HIV 1/2 Ag/Ab CMIA Reflex to Confirmation (02/22/2024 11:51 AM EDT) HIV 1/2 Ag/Ab CMIA Nonreactive Nonreactive 02/23/2024 10:50 AM EDT [facility] Comment: Results show no evidence of infection by HIV 1/2. If clinically indicated, repeat CMIA or test by nucleic acid amplification. HIV 1/2 Antigen/Antibody CMIA reflex to confirmation AND HIV-1 RNA viral load recommended in patients who are taking or have recently taken PrEP. Blood Serum specimen / Unknown 02/22/2024 11:51 AM EDT 02/22/2024 12:33 PM EDT Misty Rodgers APRN LAB BLOOD ORDERABLES Ju l Result Performing Organization Address [facility] Co de Phone Number [facility] [phone] from Last 3 Months or Most Recently Relevant to Health Maintenance Insurance [facility] [employer] MGD MEDICARE Advance Directives * Full Code (Latest Code Status on File) Date Activated Date Inactivated Comments 02/22/2024 8:54 AM Care Teams Engineering Laboratory Technician Relationship Specialty Start Date End Date Clari Joshi APRN [address] [place] [address] [phone] PCP - General Family Medicine 02/23/24
== END 2025-04-25 14:59 | disposition home or self-care (01) ==
LOC: HO.HHCX 14:58
PROVIDERS: Visit Provider Internal Medicine
DX: D86.9 Sarcoidosis, unspecified (principal); M54.6 Pain in thoracic spine; G89.29 Other chronic pain
CPT/HCPCS: 71046; 72072

== ENCOUNTER → 2025-04-25 14:58 | Outpatient (BNV) | payer MEDICARE, MEDICAID, SELFPAY | PROVIDERS: Visit Provider Radiology Diagnostic Radiology | DX: M54.6 Pain in thoracic spine (principal); R07.89 Other chest pain | CPT/HCPCS: 71046; 72072 ==

== ENCOUNTER 2025-08-21 10:56 | Outpatient (REF) | payer MEDICARE, MEDICAID, SELFPAY ==
[2025-08-21 12:07] LABS: MANUAL DIFF FLAG NO
[2025-08-21 12:31] LABS: Hematocrit 39.3 % (42.0-52.0); Hemoglobin 13.0 g/dl (14.0-18.0); Imm Gran Abs Auto 0.02 X10*3/uL (0.00-0.03); Imm Gran Pct Auto 0.3 % (0.0-0.4); Lymphocytes Absolute Auto 1.9 X10*3/uL (1.2-4.9); Mean Corpuscular HGB Conc 33.1 g/dl (31.0-36.0); Mean Corpuscular Hemoglobin 25.6 pg (27.0-33.0); Mean Corpuscular Volume 77.5 fL (80.0-98.0); NRBC Abs Auto 0.000 X10*3/uL (0.0-0.012); NRBC Pct Auto 0.0 /100WBC (0.0-0.2); Platelet Count 263 X10*3/uL (160-400); Red Blood Count 5.07 X10*6/uL (4.60-5.80); White Blood Count 8.0 X10*3/uL (4.8-10.8)
[2025-08-21 12:58] LABS: Alanine Aminotransferase 29 U/L (0-40); Albumin Level 4.2 g/dL (3.5-5.0); Alkaline Phosphatase 99 U/L (39-117); Anion Gap 10 (12-20); Aspartate Amino Transferase 33 U/L (5-37); Blood Urea Nitrogen 11 mg/dL (9-16); Calcium 9.2 mg/dL (8.4-10.2); Carbon Dioxide 28 mmol/L (22-29); Chloride 108 mmol/L (96-108); Estimated Glomerular Filt Rate > 60; Potassium 4.0 mmol/L (3.3-5.1); Sodium 142 mmol/L (135-145); Total Protein 7.1 g/dL (6.5-8.0)
[2025-08-21 13:11] LABS: Erythrocyte Sedimentation Rate 19 MM/HR (0-15)
== END 2025-08-21 10:57 | disposition home or self-care (01) ==
LOC: HO.LAB 10:56
PROVIDERS: PCP Nurse Practitioner Family; Visit Provider Hospitalist
DX: D86.9 Sarcoidosis, unspecified (principal); J45.20 Mild intermittent asthma, uncomplicated; G47.33 Obstructive sleep apnea (adult) (pediatric); R59.1 Generalized enlarged lymph nodes; R13.10 Dysphagia, unspecified; R00.0 Tachycardia, unspecified
CPT/HCPCS: 36415; 80048; 80076; 82164; 85025; 85652; 99212

== ENCOUNTER 2025-08-21 10:56 | Outpatient (AMB) | payer MEDICARE, MEDICAID, SELFPAY ==
[2025-08-21 10:58] VITALS: BP 122/56; PULSE 98; O2SAT 97; BMI 40.2
--- NOTE | 2025-08-21 10:58 | A.OFFVIS_ITS ---
Vital Signs 08/21/25 10:58 Height 5 ft 5 in Weight 241 lb 6.499 oz BMI 40.2 BP 122/56 L Blood Pressure Location Lt brachial Position Sitting Pulse 98 Pulse Source Pulse Oximeter Pulse Oximetry (%) 97 Oxygen Delivery Method Room Air Intake Visit Reasons: Sarcoidosis Outreach Professional Required: No Accompanied by: Spouse Allergies No Known Allergies (No Known Allergies*) Allergy (Verified 08/21/25 11:01) HPI Comments Details: The patient is a 40-year-old gentleman with a known history of asthma and obstructive sleep apnea who apparently was in his usual state health until back in November. 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 Then developed difficulty swallowing. he had been evaluated several times. Although not a clear etiology was found. Was not until his symptoms worsened to the point that he could not swallow at all that he was evaluated in the ER. There was concern for meningitis and for potential acute neurological issue or subacute. The patient was subsequently transferred to [facility]. There he had a CTA. I did personally review the report. Has significant lymphadenopathy. The patient also had an MRI of the brain demonstrating some potential enhancement over the internal ear canal where he has the persistent does palsy. The patient is placed on acyclovir. He was also treated for meningitis and also underwent I believe a bronchoscopy based on the patient's history and underwent biopsy or needle aspirations of the mediastinal lymph nodes diagnose any with sarcoidosis. He was placed on 60 mg of prednisone he was also placed on acyclovir. He was subsequently discharged from the hospital with pulmonary follow-up. I am seeing him today. He is feeling a little better. Although he still has the Vasques's palsy. He is doing the Antiviral therapy. No evidence of any sarcoid lesions on his MRI of the brain which is reassuring. although, does not completely rule it out. His swallow is better at this time. The patient does complain of some shortness of breath. He also has untreated sleep apnea. The patient did try CPAP but did not tolerated many years ago. During the evaluation was noted that he was having significant tachycardia. His heart rate at rest of about 110. with activity did increase to 125. Pulse ox was normal. Patient denies any chest pains. Again, he did have a CTA while at [place]. He did state that he had 2 large coffee before the visit. Will go ahead and request blood work in addition to an EKG at this time. He is going to avoid caffeine aorta in or stimulants as much as possible in meantime. We did talk about decreasing the prednisone. I am concerned with a history of diabetes in the family and his body habitus that he could potentially develop prednisone induced diabetes. Therefore will go ahead and check his sugar and also start tapering down the prednisone. He may indeed need an alternatives steroid sparing agent such as methotrexate. Will go ahead and request blood work including an Mauricio level to see if we can measure sarcoid activity. In the meantime while we slowly taper the prednisone down to 30 mg he will be monitoring closely for any recurrent symptoms. Will have to request additional data from his hospitalization at [facility] since we have limited data at this time. 08/21/2025 the patient is here for pulmonary follow-up visit. He has been lost to follow-up. He has continued to use the prednisone but off and on. In addition to that does have his issues with his breathing wheezing at times. He did have a QVAR inhaler but does not usually use it. He does have a rescue inhaler. The patient has not had any imaging study regarding the sarcoid the lymphadenopathy in the pulmonary nodules. In addition to that he continues to have daytime drowsiness. His [place] score is elevated 08/06. His is with him complaining of significant snoring and apneic episodes. The patient was supposed to have a sleep study but it was not adherent at the time. The patient understands the necessity now. Therefore, we talked about the importance of taper enough the prednisone. Especially if the sarcoid is already in remission. Will go ahead and request blood work in addition to a CT scan to assess. And hopefully we can wean him off the prednisone. In the meantime will optimize his respiratory therapy to minimize p.o. prednisone. The patient also will undergo sleep study and follow-up with Pulmonary. If any issues arise she can always call for further recommendations. [facility] Medical History (Updated 08/21/25 @ 11:24 by Alfred Ramos MD) Lymphadenopathy Pulmonary nodules Tachycardia Sarcoidosis Rectal bleeding Chronic low back pain Social History Alcohol intake: never Patient Tobacco Use Status: Never used Tobacco Review of Systems Const Reports daytime sleepiness, Denies fever(s), Reports snoring and Reports stops breathing during sleep Eyes Reports change in vision ENT Reports dysphagia Card Reports palpitations and Reports dyspnea on exertion Resp Reports cough, Reports dyspnea on exertion, Reports snoring and Reports wheezing GI Reports dysphagia Musc Reports no additional complaints Skin/Breast Denies rash Neuro Reports as per HPI and Reports focal weakness Endo Reports palpitations Doug/Lymph Denies lymphadenopathy Aller/Immun Reports wheezing Physical Exam Vital Signs: Last Vital Signs Pulse 98 08/21/25 10:58 BP 122/56 L 08/21/25 10:58 Pulse Ox 97 08/21/25 10:58 Oxygen Delivery Method Room Air 08/21/25 10:58 BMI result Body Mass Index 40.2 Const General: comfortable HEENT Head: Yes normocephalic Neck Neck: Yes supple Chest Chest palpation & inspection: normal inspection of the chest Resp Effort & Inspection: normal respiratory effort Auscultation: no wheezes and diminished lung sounds Cardio Rate: tachycardic Rhythm: regular rhythm Heart sounds: S1 normal heart sound present and S2 normal heart sound present GI Palpation (GI): Soft to palpation Skin General skin exam: no rashes or lesions noted Neuro General: other (vasques'palsy) Extrem General: Yes no clubbing, cyanosis or edema Assessment & Plan Assessment & Plan (1) Sarcoidosis: Code(s): D86.9 - Sarcoidosis, unspecified Category: Medical (2) Tachycardia: Code(s): R00.0 - Tachycardia, unspecified Category: Medical (3) Lymphadenopathy of head and neck: Code(s): R59.1 - Generalized enlarged lymph nodes Category: Medical (4) BAYLEE (obstructive sleep apnea): Code(s): G47.33 - Obstructive sleep apnea (adult) (pediatric) Category: Medical (5) Asthma: Code(s): J45.909 - Unspecified asthma, uncomplicated Category: Medical Qualifiers: Asthma complication type: uncomplicated Asthma persistence: intermittent Asthma severity: mild Qualified Code(s): J45.20 - Mild intermittent asthma, uncomplicated (6) Dysphagia: Code(s): R13.10 - Dysphagia, unspecified Category: Medical Qualifiers: Dysphagia type: unspecified Qualified Code(s): R13.10 - Dysphagia, unspecified Plan Taper Prednisone start Advair HFA NANCY as needed consider MTX if he does not tolerate cutting down the prednisone Bloodwork Home PSG CT chest F/U 3-4 months Orders: Orders Basic Metabolic Panel Today D86.9 - Sarcoidosis, unspecified, J45.20 - Mild intermittent asthma, uncomplicated Angiotensin Converting Enzyme Today D86.9 - Sarcoidosis, unspecified, J45.20 - Mild intermittent asthma, uncomplicated RT home sleep study Today J45.20 - Mild intermittent asthma, uncomplicated CT chest wo IV con 3 Months D86.9 - Sarcoidosis, unspecified, R59.1 - Generalized enlarged lymph nodes, R91.8 - Other nonspecific abnormal finding of lung field Complete Blood Count Auto Diff Today D86.9 - Sarcoidosis, unspecified, J45.20 - Mild intermittent asthma, uncomplicated Liver Panel Today D86.9 - Sarcoidosis, unspecified, J45.20 - Mild intermittent asthma, uncomplicated Erythrocyte Sedimentation Rate Today D86.9 - Sarcoidosis, unspecified, J45.20 - Mild intermittent asthma, uncomplicated Medications: New fluticasone propion-salmeterol 115-21 mcg/actuation (Advair HFA) 2 puffs inhalation Q12H 12 grams 11RF 30 days albuterol sulfate 90 mcg/actuation (Ventolin HFA) 2 puffs inhalation QID PRN 18 grams 11RF shortness of breath or wheezing 30 days Coding Level of Care Code Est Pt Level 4 (59340) Diagnoses Sarcoidosis D86.9 Tachycardia R00.0 Lymphadenopathy of head and neck R59.1 BAYLEE (obstructive sleep apnea) G47.33 Mild intermittent asthma without complication J45.20 Asthma complication type: uncomplicated Asthma persistence: intermittent Asthma severity: mild Dysphagia, unspecified type R13.10 Dysphagia type: unspecified Time Spent (min) 18
== END 2025-08-21 11:25 | disposition home or self-care (01) ==
LOC: HO.HPS 10:57
PROVIDERS: Visit Provider Hospitalist
DX: D86.9 Sarcoidosis, unspecified (principal); R00.0 Tachycardia, unspecified; R59.1 Generalized enlarged lymph nodes; G47.33 Obstructive sleep apnea (adult) (pediatric); J45.20 Mild intermittent asthma, uncomplicated; R13.10 Dysphagia, unspecified
CPT/HCPCS: 99214